=== PATIENT | female | born 1935 | race Caucasian/White ===

== ENCOUNTER 2017-07-11 23:15 | Inpatient (IN) | payer MEDICARE ==
[2017-07-11] MEDS ORDERED: methylPREDNISolone SOD SUCCI 125 MG/2 ML VIAL IV STA (23:36)
--- NOTE | 2017-07-11 23:38 | ED ---
General Adult HPI - General Chief complaint: Shortness of Breath Stated complaint: TICO Time Seen by Provider: 07/11/17 23:15 Source: patient, family, RN notes reviewed Mode of arrival: EMS Limitations: no limitations - History of Present Illness Initial comments: This is an 82-year-old female presents emergency department with past medical history significant for congestive heart failure and COPD. Patient comes in today because she's had difficulty breathing since this afternoon and is getting progressively worse. Patient states she was recently admitted about a month ago for congestive heart failure. Patient denies any fever chills or cough per patient denies any chest pain or palpitations. Patient states the breathing treatments on the way and plus the BiPAP has helped her with her breathing. Patient states she normally has a little bit of edema to her legs but it is a little worse as of yesterday. Patient denies any abdominal pain patient denies nausea vomiting diarrhea. Patient denies any lightheadedness or dizziness. Patient denies any headache patient denies numbness or weakness - Related Data Home Medications Medication Instructions Recorded Confirmed Ascorbic Acid [Vitamin C] 250 mg PO DAILY 06/01/17 06/01/17 Budesonide/Formoterol Fumarate 2 puff INHALATION RT-BID 06/01/17 06/01/17 [Symbicort 80-4.5 Mcg Inhaler] Cholecalciferol (Vitamin D3) 2,000 unit PO DAILY 06/01/17 06/01/17 [Vitamin D3] Docusate [Colace] 200 mg PO DAILY 06/01/17 06/01/17 Fexofenadine HCl [Altoya Allergy] 60 mg PO DAILY 06/01/17 06/01/17 Ipratropium [place] 0.06%Nasal 2 spray EA NOSTRIL BID 06/01/17 06/01/17 [Atrovent Nasal 0.06%] Ipratropium-Albuterol Nebulize 3 ml INHALATION RT-QID 06/01/17 06/01/17 [Duoneb 0.5 mg-3 mg/3 ml Soln] Levothyroxine Sodium [Synthroid] 100 mcg PO DAILY 06/01/17 06/01/17 Montelukast [Singulair] 10 mg PO HS 06/01/17 06/01/17 Roflumilast [Daliresp] 500 mcg PO DAILY 06/01/17 06/01/17 Theophylline Anhydrous [Theochron] 300 mg PO DAILY 06/01/17 06/01/17 predniSONE 20 mg PO DAILY 06/01/17 06/01/17 Previous Rx's Medication Instructions Recorded Aspirin 81 mg PO DAILY chew 06/06/17 Levofloxacin [Levaquin] 500 mg PO Q48H tab 06/06/17 Metoprolol Succinate (ER) [Toprol 25 mg PO DAILY tab.er.24h 06/06/17 XL] clonazePAM [KlonoPIN] 0.5 mg PO BID tab 06/06/17 guaiFENesin [Mucinex] 1,200 mg PO Q12HR tablet.er 06/06/17 Allergies Allergy/AdvReac Type Severity Reaction Status Date / Time No Known Allergies Allergy Verified 07/11/17 23:21 Review of Systems ROS Statement: Those systems with pertinent positive or pertinent negative responses have been documented in the HPI. ROS Other: All systems not noted in ROS Statement are negative. Past Medical History Past Medical History: COPD, Hyperlipidemia, Osteoarthritis (OA), Thyroid Disorder Additional Past Medical History / Comment(s): allergies, sinus, 02 -3 liters n/ c atc, fatty tumors.constipations, gout, past cataracts and gluacoma, and has a " touch of mac degeneration" History of Any Multi-Drug Resistant Organisms: None Reported Past Surgical History: Section Additional Past Surgical History / Comment(s): egd w/ bx pt stated was neg, colonoscopy, cataract removed has lens implants, eye sx for glaucoma. fatty tumor removed.'had flu shot this season but not sure of date" Past Anesthesia/Blood Transfusion Reactions: No Reported Reaction Past Psychological History: No Psychological Hx Reported Smoking Status: Former smoker - Past Family History Father Family Medical History: Myocardial Infarction ([place]) Additional Family Medical History / Comment(s): alcoholic/smoked Mother Family Medical History: Coronary Artery Disease (CAD), Myocardial Infarction ([place] ) Additional Family Medical History / Comment(s): cabg Daughter(s) Family Medical History: Cancer Additional Family Medical History / Comment(s): ovarian cancer Brother(s) Additional Family Medical History / Comment(s): one brother has heart problems and cancer, and another had seizure. Sister(s) Family Medical History: Cancer Additional Family Medical History / Comment(s): brain cancer General Exam - General Exam Comments Initial Comments: GENERAL: Patient is well-developed and well-nourished. Patient is nontoxic and well- hydrated and is in moderate distress. Patient is on BiPAP. ENT: Neck is soft and supple. No significant lymphadenopathy is noted. Oropharynx is clear. Moist mucous membranes. Neck has full range of motion without eliciting any pain. EYES: The sclera were anicteric and conjunctiva were pink and moist. Extraocular movements were intact and pupils were equal round and reactive to light. Eyelids were unremarkable. PULMONARY: Patient has extra wheezing and diminished breath sounds bilaterally CARDIOVASCULAR: There is a regular rate and rhythm without any murmurs gallops or rubs. ABDOMEN: Soft and nontender with normal bowel sounds. SKIN: Skin is clear with no lesions or rashes and otherwise unremarkable. NEUROLOGIC: Patient is alert and oriented x3. Cranial nerves II through XII are grossly intact. Motor and sensory are also intact. Normal speech, volume and content. Symmetrical smile. MUSCULOSKELETAL: Normal extremities with adequate strength and full range of motion. 1+ edema. No calf tenderness. LYMPHATICS: No significant lymphadenopathy is noted PSYCHIATRIC: Normal psychiatric evaluation. Normal interpersonal interactions appears functionally intact in deals appropriately with others. No signs of depression. No signs of anxiety. Limitations: no limitations Course Vital Signs 07/11/17 07/12/17 07/12/17 23:17 00:45 01:20 Temperature 98.5 F Pulse Rate 133 H 112 H 118 H Respiratory 24 24 24 Rate Blood Pressure 190/90 192/91 153/65 O2 Sat by Pulse 98 95 96 Oximetry Medical Decision Making - Medical Decision Making EKG shows sinus tachycardia at 126 bpm MN interval is 134 QRS is 74 Q-T intervals 294 QTC is 425. Patient's EKG is of poor quality but there is no obvious ST segment elevation or depression. Daughter refuses to let us give the patient Lasix because she is it dried out too much. Patient refused to tolerate the BiPAP any longer so he had to put her on a Ventimask. Dr. Ambrose wanted the patient to get 20 Lasix every 12. Family was in agreement with this. I continued Lasix on the floor. I continue breathing treatments and steroids on the floor as well as - Lab Data Result diagrams: 07/11/17 23:46 07/11/17 23:46 Lab Results 07/11/17 07/11/17 07/11/17 Range/Units 23:46 23:46 23:46 WBC 7.2 (3.8-10.6) k/uL RBC 3.23 L (3.80-5.40) m/uL Hgb 10.1 L (11.4-16.0) gm/dL Hct 33.9 L (34.0-46.0) % MCV 104.8 H (80.0-100.0) fL MCH 31.3 (25.0-35.0) pg MCHC 29.9 L (31.0-37.0) g/dL RDW 16.4 H (11.5-15.5) % Plt Count 243 (150-450) k/uL Neutrophils % 77 % Lymphocytes % 17 % Monocytes % 5 % Eosinophils % 0 % Basophils % 0 % Neutrophils # 5.5 (1.3-7.7) k/uL Lymphocytes # 1.2 (1.0-4.8) k/uL Monocytes # 0.4 (0-1.0) k/uL Eosinophils # 0.0 (0-0.7) k/uL Basophils # 0.0 (0-0.2) k/uL Hypochromasia Marked Poikilocytosis Slight Anisocytosis Slight Macrocytosis Moderate PT (9.0-12.0) sec INR (<1.2) APTT (22.0-30.0) sec Sodium 151 H (137-145) mmol/L Potassium 4.1 (3.5-5.1) mmol/L Chloride 104 (98-107) mmol/L Carbon Dioxide 38 H (22-30) mmol/L Anion Gap 9 mmol/L BUN 36 H (7-17) mg/dL Creatinine 1.80 H (0.52-1.04) mg/dL Est GFR (MDRD) Af Amer 33 (>60 ml/min/1.73 sqM) Est GFR (MDRD) Non-Af 27 (>60 ml/min/1.73 sqM) Glucose 69 L (74-99) mg/dL Calcium 9.8 (8.4-10.2) mg/dL Magnesium 2.0 (1.6-2.3) mg/dL Total Bilirubin 0.5 (0.2-1.3) mg/dL AST 26 (14-36) U/L ALT 29 (9-52) U/L Alkaline Phosphatase 56 (38-126) U/L Total Creatine Kinase <20 L (30-135) U/L CK-MB (CK-2) 1.0 (0.0-2.4) ng/mL CK-MB (CK-2) Rel Index Troponin I 0.039 H* (0.000-0.034) ng/mL NT-Pro-B Natriuret Pep pg/mL Total Protein 5.8 L (6.3-8.2) g/dL Albumin 3.5 (3.5-5.0) g/dL 07/11/17 07/11/17 Range/Units 23:46 23:46 WBC (3.8-10.6) k/uL RBC (3.80-5.40) m/uL Hgb (11.4-16.0) gm/dL Hct (34.0-46.0) % MCV (80.0-100.0) fL MCH (25.0-35.0) pg MCHC (31.0-37.0) g/dL RDW (11.5-15.5) % Plt Count (150-450) k/uL Neutrophils % % Lymphocytes % % Monocytes % % Eosinophils % % Basophils % % Neutrophils # (1.3-7.7) k/uL Lymphocytes # (1.0-4.8) k/uL Monocytes # (0-1.0) k/uL Eosinophils # (0-0.7) k/uL Basophils # (0-0.2) k/uL Hypochromasia Poikilocytosis Anisocytosis Macrocytosis PT 9.7 (9.0-12.0) sec INR 1.0 (<1.2) APTT 21.9 L (22.0-30.0) sec Sodium (137-145) mmol/L Potassium (3.5-5.1) mmol/L Chloride (98-107) mmol/L Carbon Dioxide (22-30) mmol/L Anion Gap mmol/L BUN (7-17) mg/dL Creatinine (0.52-1.04) mg/dL Est GFR (MDRD) Af Amer (>60 ml/min/1.73 sqM) Est GFR (MDRD) Non-Af (>60 ml/min/1.73 sqM) Glucose (74-99) mg/dL Calcium (8.4-10.2) mg/dL Magnesium (1.6-2.3) mg/dL Total Bilirubin (0.2-1.3) mg/dL AST (14-36) U/L ALT (9-52) U/L Alkaline Phosphatase (38-126) U/L Total Creatine Kinase (30-135) U/L CK-MB (CK-2) (0.0-2.4) ng/mL CK-MB (CK-2) Rel Index Troponin I (0.000-0.034) ng/mL NT-Pro-B Natriuret Pep 1640 pg/mL Total Protein (6.3-8.2) g/dL Albumin (3.5-5.0) g/dL Critical Care Time Critical Care Time: Yes Total Critical Care Time: 35 Disposition Clinical Impression: Acute pulmonary edema, Acute exacerbation of chronic obstructive airways disease, Renal insufficiency Disposition: ADMITTED IP TO THIS HOSP Referrals: Elva Ren MD [Primary Care Provider] - 1-2 days Time of Disposition: 01:29
[2017-07-12] MEDS ORDERED: hydrALAZINE HCL 20 MG/ML 1 ML VIAL IVP STA (00:14)
--- NOTE | 2017-07-12 00:17 | XR ---
EXAMINATION TYPE: XR chest 2V DATE OF EXAM: 07/12/2017 COMPARISON: 06/03/2017 HISTORY: Difficulty breathing TECHNIQUE: Frontal and lateral views of the chest are obtained. FINDINGS: Heart appears enlarged. There is some flattening of the diaphragm. There is patchy bilater al pulmonary infiltrates. Pulmonary vascularity is difficult to evaluate because of the lung disease. There is slight blunting of right costophrenic angle. IMPRESSION: New bilateral pulmonary infiltrates compared to last exam. This is more likely congestiv e heart failure superimposed on emphysema. Small right pleural effusion. There is some consolidation in the right middle lobe consistent with acute pneumonia.
[2017-07-12 00:18] LABS: Anisocytosis Slight; Basophils % (A) 0 %; Eosinophils % (A) 0 %; HCT 33.9 % (34.0-46.0); HGB 10.1 gm/dL (11.4-16.0); Hypochromasia Marked; Lymphocytes # (A) 1.2 k/uL (1.0-4.8); Lymphocytes % (A) 17 %; MCH 31.3 pg (25.0-35.0); MCHC 29.9 g/dL (31.0-37.0); MCV 104.8 fL (80.0-100.0); Macrocytosis Moderate; Mean Platelet Volume 7.5; Monocytes # (A) 0.4 k/uL (0-1.0); Monocytes % (A) 5 %; Neutrophils # (A) 5.5 k/uL (1.3-7.7); Neutrophils % (A) 77 %; Platelet Count 243 k/uL (150-450); Poikilocytosis Slight; RBC 3.23 m/uL (3.80-5.40); RDW 16.4 % (11.5-15.5); WBC 7.2 k/uL (3.8-10.6)
[2017-07-12 00:26] LABS: Albumin 3.5 g/dL (3.5-5.0); Calcium 9.8 mg/dL (8.4-10.2); Potassium 4.1 mmol/L (3.5-5.1); Total Bilirubin 0.5 mg/dL (0.2-1.3); Total Protein 5.8 g/dL (6.3-8.2)
[2017-07-12 00:28] LABS: Prothrombin Time 9.7 sec (9.0-12.0)
[2017-07-12 00:34] LABS: Partial Thromboplastin Time 21.9 sec (22.0-30.0)
[2017-07-12 00:37] LABS: Creatine Kinase <20 U/L (30-135)
[2017-07-12] MEDS ORDERED: ONDANSETRON 4 MG/2 ML VIAL IVP STA (00:41)
[2017-07-12 00:54] LABS: Troponin I 0.039 ng/mL (0.000-0.034)
[2017-07-12] MEDS ORDERED: MORPHINE SULFATE 2 MG/ML SYRINGE IVP STA (01:12)
[2017-07-12] MEDS ORDERED: FUROSEMIDE 10 MG/ML 2 ML VIAL IV ONE ×2 (01:18→01:47)
[2017-07-12] MEDS ORDERED: NITROGLYCERIN OINT 1 INCH/GM PACKET TOPICAL STA (01:18)
[2017-07-12 02:20] LABS: Glucose,Whole Blood 89 mg/dL (75-99)
[2017-07-12 05:33] LABS: Anisocytosis Slight; HGB 9.7 gm/dL (11.4-16.0); Hypochromasia Marked; MCH 32.4 pg (25.0-35.0); MCHC 29.3 g/dL (31.0-37.0); Macrocytosis Marked; Mean Platelet Volume 7.6; Platelet Count 181 k/uL (150-450); Poikilocytosis Slight; RBC 2.98 m/uL (3.80-5.40); RDW 16.6 % (11.5-15.5); WBC 5.7 k/uL (3.8-10.6)
[2017-07-12 05:38] LABS: MCV 110.4 fL (80.0-100.0)
[2017-07-12 05:39] LABS: Calcium 9.5 mg/dL (8.4-10.2); Potassium 5.1 mmol/L (3.5-5.1)
[2017-07-12] MEDS: methylPREDNISolone SOD SUCCI 125 MG/2 ML VIAL IV SCH ×4 (06:45→23:27)
[2017-07-12] MEDS ORDERED: FUROSEMIDE 10 MG/ML 2 ML VIAL IV SCH (08:00)
[2017-07-12] MEDS: IPRATROPIUM-ALBUTEROL 3 ML NEB INHALATION PRN ×2 (08:02→11:42)
[2017-07-12] MEDS ORDERED: NITROGLYCERIN OINT 1 INCH/GM PACKET TOPICAL SCH (09:00)
--- NOTE | 2017-07-12 10:58 | P.CNPUL ---
History of Present Illness Consult date: 07/12/17 Reason for consult: dyspnea, COPD, hypoxemia, pleural effusion, abnormal CXR/CT Chief complaint: Shortness of breath, CHF, mental status changes. History of present illness: Consult dated 07/12/2017 This is an 82-year-old female who presented to the emergency department with complaints of shortness of breath. She has a history of congestive heart failure and quite severe COPD. In addition, she had progressive shortness of breath. It been getting worse for a couple days prior to admission. She was recently admitted to the hospital for an episode of congestive heart failure. The patient also has mental status changes. When I went to the room to see her , she could barely recognized me. I been seeing her for many years. I asked the nurse to get a stat arterial blood gas and also to do a computed tomography scan of the brain. The patient's chest x-ray is consistent consistent with fluid overload. The patient's receiving O2 at 5 L by nasal cannula no IV fluids. She's been on and off of BiPAP at 12 and 6 and 50%. Her most recent admission was in May of last year. She has a history of COPD hyperlipidemia osteoarthritis hypothyroidism congestive heart failure and glaucoma gout lipoma and macular degeneration. Her medications included ascorbic acid Symbicort vitamin D3 Colace Latoya updrafts with DuoNeb Atrovent nasal spray Synthroid Singulair bowel arrest theophylline and prednisone daily. ALLERGIES are denied. Review of Systems ROS unobtainable: due to mental status Past Medical History Past Medical History: Heart Failure, COPD, Hyperlipidemia, Osteoarthritis (OA), Sleep Apnea/CPAP/BIPAP, Thyroid Disorder Additional Past Medical History / Comment(s): allergies, sinus, 02 -3 liters n/ c atc, fatty tumors.constipations, gout, past cataracts and gluacoma, and has a " touch of mac degeneration" History of Any Multi-Drug Resistant Organisms: None Reported Past Surgical History: Section Additional Past Surgical History / Comment(s): egd w/ bx pt stated was neg, colonoscopy, cataract removed has lens implants, eye sx for glaucoma. fatty tumor removed.'had flu shot this season but not sure of date" Past Anesthesia/Blood Transfusion Reactions: No Reported Reaction Past Psychological History: No Psychological Hx Reported Smoking Status: Former smoker Past Alcohol Use History: None Reported Additional Past Alcohol Use History / Comment(s): started smoking(1968) and quit 2008-smoked off and on Past Drug Use History: None Reported - Past Family History Father Family Medical History: Myocardial Infarction ([place]) Additional Family Medical History / Comment(s): alcoholic/smoked Mother Family Medical History: Coronary Artery Disease (CAD), Myocardial Infarction ([place] ) Additional Family Medical History / Comment(s): cabg Daughter(s) Family Medical History: Cancer Additional Family Medical History / Comment(s): ovarian cancer Brother(s) Additional Family Medical History / Comment(s): one brother has heart problems and cancer, and another had seizure. Sister(s) Family Medical History: Cancer Additional Family Medical History / Comment(s): brain cancer Medications and Allergies Home Medications Medication Instructions Recorded Confirmed Type Ascorbic Acid [Vitamin C] 250 mg PO DAILY 06/01/17 07/12/17 History Budesonide/Formoterol Fumarate 2 puff INHALATION RT-BID 06/01/17 07/12/17 History [Symbicort 80-4.5 Mcg Inhaler] Cholecalciferol (Vitamin D3) 2,000 unit PO DAILY 06/01/17 07/12/17 History [Vitamin D3] Docusate [Colace] 200 mg PO DAILY 06/01/17 07/12/17 History Fexofenadine HCl [Latoya Allergy] 60 mg PO DAILY 06/01/17 07/12/17 History Ipratropium [place] 0.06%Nasal 2 spray EA NOSTRIL BID 06/01/17 07/12/17 History [Atrovent Nasal 0.06%] Ipratropium-Albuterol Nebulize 3 ml INHALATION RT-QID 06/01/17 07/12/17 History [Duoneb 0.5 mg-3 mg/3 ml Soln] Levothyroxine Sodium [Synthroid] 100 mcg PO DAILY 06/01/17 07/12/17 History Montelukast [Singulair] 10 mg PO HS 06/01/17 07/12/17 History Roflumilast [Daliresp] 500 mcg PO DAILY 06/01/17 07/12/17 History Theophylline Anhydrous [Theochron] 300 mg PO DAILY 06/01/17 07/12/17 History predniSONE 20 mg PO DAILY 06/01/17 07/12/17 History Aspirin 81 mg PO DAILY chew 06/06/17 07/12/17 Rx Metoprolol Succinate (ER) [Toprol 25 mg PO DAILY tab.er.24h 06/06/17 07/12/17 Rx XL] clonazePAM [KlonoPIN] 0.5 mg PO BID tab 06/06/17 07/12/17 Rx guaiFENesin [Mucinex] 1,200 mg PO Q12HR tablet.er 06/06/17 07/12/17 Rx Furosemide [Lasix] 40 mg PO DAILY 07/12/17 07/12/17 History Levofloxacin [Levaquin] 500 mg PO DAILY 07/12/17 07/12/17 History Olopatadine HCl [[place]] 1 drop BOTH EYES DIRECTED 07/12/17 07/12/17 History Polymyxin B-Trimethoprim Ophth 1 drops BOTH EYES DIRECTED 07/12/17 07/12/17 History [Polytrim Opthalmic] Allergies Allergy/AdvReac Type Severity Reaction Status Date / Time No Known Allergies Allergy Verified 07/12/17 08:54 Physical Exam Osteopathic Statement: *. No significant issues noted on an osteopathic structural exam other than those noted in the History and Physical/Consult. Vitals: Vital Signs Temp Pulse Resp BP Pulse Ox 07/12/17 10:00 95 18 90/43 91 L 07/12/17 09:00 101 H 21 91/53 90 L 07/12/17 08:12 98 07/12/17 08:03 94 96 07/12/17 08:00 97.5 F L 95 18 91/46 98 07/12/17 07:00 103 H 20 87/46 99 07/12/17 04:00 98.2 F 107 H 25 H 82/69 96 07/12/17 03:13 97 07/12/17 03:00 109 H 18 81/41 88 L 07/12/17 02:19 98.6 F 113 H 41 H 91/47 07/12/17 02:04 112 H 20 138/64 93 L 07/12/17 01:20 118 H 24 153/65 96 07/12/17 00:45 112 H 24 192/91 95 07/11/17 23:17 98.5 F 133 H 24 190/90 98 Intake and Output 07/11/17 07/12/17 07/12/17 22:59 06:59 14:59 Intake Total 120 Balance 120 Intake: Oral 120 Other: # Voids 0 Weight 59.7 kg No acute distress. The patient is very confused. She does arouse. HEENT examination is grossly unremarkable. Mucous membranes are moist. No oral lesions. Bilateral sclerae are injected. Right side greater than left side. Neck supple. Full range of motion. No adenopathy thyromegaly or neck vein distention. Cardiovascular examination reveals regular rhythm rate. S1-S2 normal. No S3 or S4. No discernible murmur noted. Lungs reveal diminished breath sounds. Some crackles at the bases. There is diffuse rhonchi. Breath sounds are severely diminished. Abdomen soft bowel sounds are heard. No masses or tenderness. Extremities reveal diffuse bilateral edema. There is pitting. Skin is without rash or lesion. Neurologic examination is difficult to perform because of her mental status.. Results - Laboratory Findings CBC and BMP: 07/12/17 04:40 07/12/17 04:40 PT/INR, D-dimer PT 9.7 sec (9.0-12.0) 07/11/17 23:46 INR 1.0 (<1.2) 07/11/17 23:46 Abnormal lab findings: Abnormal Labs 07/11/17 07/11/17 07/11/17 23:46 23:46 23:46 RBC 3.23 L Hgb 10.1 L Hct 33.9 L MCV 104.8 H MCHC 29.9 L RDW 16.4 H APTT Sodium 151 H Carbon Dioxide 38 H BUN 36 H Creatinine 1.80 H Glucose 69 L Total Creatine Kinase <20 L Troponin I 0.039 H* Total Protein 5.8 L 07/11/17 07/12/17 07/12/17 23:46 04:40 04:40 RBC 2.98 L Hgb 9.7 L Hct 33.0 L MCV 110.4 H D MCHC 29.3 L RDW 16.6 H APTT 21.9 L Sodium Carbon Dioxide BUN Creatinine Glucose Total Creatine Kinase Troponin I 0.058 H* Total Protein 07/12/17 04:40 RBC Hgb Hct MCV MCHC RDW APTT Sodium 148 H Carbon Dioxide 31 H BUN 43 H Creatinine 1.90 H Glucose Total Creatine Kinase Troponin I Total Protein - Diagnostic Findings Chest x-ray: image reviewed (The labs x-rays a medications are all reviewed. 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 Plan: Plan dated 07/12/2017 The patient will be sent down for a CAT scan of the brain without contrast. In addition, we'll give start arterial blood gas. Her medications labs and x-rays all reviewed. Her overall prognosis is poor. She may require intubation before the day is up. Additional recommendations and suggestions are forthcoming. All medications were reviewed and adjusted accordingly. Time with Patient: Greater than 30
[2017-07-12 11:08] LABS: ABG PH 7.09 (7.35-7.45)
[2017-07-12 11:09] LABS: ABG Base Excess 3.7 mmol/L; ABG HCO3 33 mmol/L (21-25); ABG PCO2 114 mmHg (35-45); ABG PO2 172 mmHg (83-108); ABG TCO2 37 mmol/L (19-24)
[2017-07-12 11:42] LABS: Amorphous Sediment,Urine Rare /hpf; Appearance,Urine Clear (Clear); Bilirubin,Urine Negative (Negative); Blood,Urine Negative (Negative); Color,Urine Yellow; Glucose,Urine (UA) Negative (Negative); Ketones,Urine Negative (Negative); Leukocyte Esterase,Urine Negative (Negative); Nitrite,Urine Negative (Negative); Protein,Urine 1+ (Negative); Specific Gravity,Urine 1.007 (1.001-1.035); Squamous Epithelial Cell,Urine <1 /hpf (0-4); Urobilinogen,Urine <2.0 mg/dL (<2.0); WBC,Urine <1 /hpf (0-5)
[2017-07-12] MEDS ORDERED: METOPROLOL SUCCINATE (ER) 25 MG TAB.ER.24H PO SCH (11:45)
--- NOTE | 2017-07-12 11:50 | P.CRDCN ---
History of Present Illness Consult date: 07/12/17 History of present illness: Mrs. May is an 82-year-old female past medical history significant for COPD, diastolic heart failure and former tobacco use. She sees Dr. Lofton in the office, last visit was 11/2015. We have been asked to see her in consultation for shortness of breath. She is seen today in the ICU on bipap. She is alert but not really talking, history taken from chart, nurse and daughter at the bedside. Per the daughter she was severely dypneic with altered mental status. She was receiving oxygen via nasal cannula initially and continued to become increasingly dyspneic and altered so bipap was applied. ABG obtained reveals CO2 noted to be 114 with pH 7.09. She denies chest pain or palpitations. Blood pressure on admission 190/90 she received hydralazine 10 mg IV push. EKG on arrival reveals sinus tachycardia with poor quality secondary to tachypnea. Chest xray bilateral pulmonary infiltrates likely congestive heart failure superimposed on emphysema with small right pleural effusion. Small consolidation in the right middle lobe consistent with pneumonia. Lavatory data reviewed, hemoglobin 9.7, pH 7.09, pCO2 114, pO2 172, bicarb 33, potassium 5.1, BUN 43, creatinine 1.9 with a GFR of 25, troponins on admission 0.039 repeat 0.058, proBNP 1640. Current cardiac medications include Toprol 25 mg daily, Lasix 40 mg daily and aspirin 81 mg daily. Most recent echocardiogram performed 05/2017 reveals preserved left ventricular systolic function with ejection fraction 55-60%, mild concentric left ventricular hypertrophy, mild aortic valve sclerosis, mild pulmonary hypertension, mild MR and mild TR. RVSP 35.26 mmHg. Review of systems At this time my exam: Difficult to obtain an accurate review of systems secondary to mental status. Although upon questioning she does deny symptoms of chest pain or palpitations. Physical exam Blood pressure 90/43 heart rate 99 afebrile GENERAL: This is a 82-year-old female in moderate respiratory distress at the time of my examination. Currently on BiPAP. HEENT: Head is atraumatic, normocephalic. Right eye with subconjunctival hemorrhage. Sclerae anicteric. Mucous membranes of the mouth are moist. Neck is supple. There is no jugular venous distention. No carotid bruit is heard. LUNGS: Severely diminished air entry.No chest wall tenderness is noted on palpation or with deep breathing. HEART: Regular rate and rhythm with systolic ejection murmur at the base, no rubs or gallops. S1 and S2 heard. Tachycardic. ABDOMEN: Soft, nontender. Bowel sounds are heard. No organomegaly noted. EXTREMITIES: No evidence of peripheral edema and no calf tenderness noted. VASCULAR: Radial and dorsalis pedis pulses palpated, no evidence of clubbing. NEUROLOGIC: Patient is awake and alert. ASSESSMENT 1. Very mild exacerbation diastolic heart failure, proBNP 1640 2. Acute exacerbation of COPD currently on BiPAP with CO2 retention 3. Mildly elevated troponin with no evidence of an acute coronary event 4. Dyslipidemia PLAN Continue with lasix IV 20 mg BID. Strict intake and output monitoring. Repeat EKG in the morning. Check BMP and follow renal function while undergoing diuresis. Continue aspirin and beta hayley therapy. TACO inhibitor was discontinued last admission secondary to acute kidney injury. Avoid episodes of hypotension, no IV anti-hypertensives should be used. Discontinue nitropaste. Continue with pulmonary consultation for acute exacerbation of COPD and CO2 retention. Further recommendations will be based upon clinical course. Thank you kindly for this consultation. Nurse Practitioner note has been reviewed, I agree with a documented findings and plan of care. Patient was seen and examined. Past Medical History Past Medical History: Heart Failure, COPD, Hyperlipidemia, Osteoarthritis (OA), Sleep Apnea/CPAP/BIPAP, Thyroid Disorder Additional Past Medical History / Comment(s): allergies, sinus, 02 -3 liters n/ c atc, fatty tumors.constipations, gout, past cataracts and gluacoma, and has a " touch of mac degeneration" History of Any Multi-Drug Resistant Organisms: None Reported Past Surgical History: Section Additional Past Surgical History / Comment(s): egd w/ bx pt stated was neg, colonoscopy, cataract removed has lens implants, eye sx for glaucoma. fatty tumor removed.'had flu shot this season but not sure of date" Past Anesthesia/Blood Transfusion Reactions: No Reported Reaction Past Psychological History: No Psychological Hx Reported Smoking Status: Former smoker Past Alcohol Use History: None Reported Additional Past Alcohol Use History / Comment(s): started smoking(1968) and quit 2008-smoked off and on Past Drug Use History: None Reported - Past Family History Father Family Medical History: Myocardial Infarction ([place]) Additional Family Medical History / Comment(s): alcoholic/smoked Mother Family Medical History: Coronary Artery Disease (CAD), Myocardial Infarction ([place] ) Additional Family Medical History / Comment(s): cabg Daughter(s) Family Medical History: Cancer Additional Family Medical History / Comment(s): ovarian cancer Brother(s) Additional Family Medical History / Comment(s): one brother has heart problems and cancer, and another had seizure. Sister(s) Family Medical History: Cancer Additional Family Medical History / Comment(s): brain cancer Medications and Allergies Home Medications Medication Instructions Recorded Confirmed Type Ascorbic Acid [Vitamin C] 250 mg PO DAILY 06/01/17 07/12/17 History Budesonide/Formoterol Fumarate 2 puff INHALATION RT-BID 06/01/17 07/12/17 History [Symbicort 80-4.5 Mcg Inhaler] Cholecalciferol (Vitamin D3) 2,000 unit PO DAILY 06/01/17 07/12/17 History [Vitamin D3] Docusate [Colace] 200 mg PO DAILY 06/01/17 07/12/17 History Fexofenadine HCl [Latoya Allergy] 60 mg PO DAILY 06/01/17 07/12/17 History Ipratropium [place] 0.06%Nasal 2 spray EA NOSTRIL BID 06/01/17 07/12/17 History [Atrovent Nasal 0.06%] Ipratropium-Albuterol Nebulize 3 ml INHALATION RT-QID 06/01/17 07/12/17 History [Duoneb 0.5 mg-3 mg/3 ml Soln] Levothyroxine Sodium [Synthroid] 100 mcg PO DAILY 06/01/17 07/12/17 History Montelukast [Singulair] 10 mg PO HS 06/01/17 07/12/17 History Roflumilast [Daliresp] 500 mcg PO DAILY 06/01/17 07/12/17 History Theophylline Anhydrous [Theochron] 300 mg PO DAILY 06/01/17 07/12/17 History predniSONE 20 mg PO DAILY 06/01/17 07/12/17 History Aspirin 81 mg PO DAILY chew 06/06/17 07/12/17 Rx Metoprolol Succinate (ER) [Toprol 25 mg PO DAILY tab.er.24h 06/06/17 07/12/17 Rx XL] clonazePAM [KlonoPIN] 0.5 mg PO BID tab 06/06/17 07/12/17 Rx guaiFENesin [Mucinex] 1,200 mg PO Q12HR tablet.er 06/06/17 07/12/17 Rx Furosemide [Lasix] 40 mg PO DAILY 07/12/17 07/12/17 History Levofloxacin [Levaquin] 500 mg PO DAILY 07/12/17 07/12/17 History Olopatadine HCl [Pataday] 1 drop BOTH EYES DIRECTED 07/12/17 07/12/17 History Polymyxin B-Trimethoprim Ophth 1 drops BOTH EYES DIRECTED 07/12/17 07/12/17 History [Polytrim Opthalmic] Allergies Allergy/AdvReac Type Severity Reaction Status Date / Time No Known Allergies Allergy Verified 07/12/17 08:54 Physical Exam Vitals: Vital Signs Temp Pulse Resp BP Pulse Ox 07/12/17 11:00 99 21 90/43 94 L 07/12/17 10:00 95 18 90/43 91 L 07/12/17 09:00 101 H 21 91/53 90 L 07/12/17 08:12 98 07/12/17 08:03 94 96 07/12/17 08:00 97.5 F L 95 18 91/46 98 07/12/17 07:00 103 H 20 87/46 99 07/12/17 04:00 98.2 F 107 H 25 H 82/69 96 07/12/17 03:13 97 07/12/17 03:00 109 H 18 81/41 88 L 07/12/17 02:19 98.6 F 113 H 41 H 91/47 07/12/17 02:04 112 H 20 138/64 93 L 07/12/17 01:20 118 H 24 153/65 96 07/12/17 00:45 112 H 24 192/91 95 07/11/17 23:17 98.5 F 133 H 24 190/90 98 Intake and Output 07/11/17 07/12/17 07/12/17 22:59 06:59 14:59 Intake Total 120 Balance 120 Intake: Oral 120 Other: # Voids 0 Weight 59.7 kg Results 07/12/17 04:40 07/12/17 04:40 Cardiac Enzymes 07/11/17 07/11/17 07/12/17 Range/Units 23:46 23:46 04:40 AST 26 (14-36) U/L CK-MB (CK-2) 1.0 (0.0-2.4) ng/mL Troponin I 0.039 H* 0.058 H* (0.000-0.034) ng/mL Coagulation 07/11/17 Range/Units 23:46 PT 9.7 (9.0-12.0) sec APTT 21.9 L (22.0-30.0) sec CBC 07/11/17 07/12/17 Range/Units 23:46 04:40 WBC 7.2 5.7 (3.8-10.6) k/uL RBC 3.23 L 2.98 L (3.80-5.40) m/uL Hgb 10.1 L 9.7 L (11.4-16.0) gm/dL Hct 33.9 L 33.0 L (34.0-46.0) % Plt Count 243 181 (150-450) k/uL Comprehensive Metabolic Panel 07/11/17 07/12/17 Range/Units 23:46 04:40 Sodium 151 H 148 H (137-145) mmol/L Potassium 4.1 5.1 (3.5-5.1) mmol/L Chloride 104 107 (98-107) mmol/L Carbon Dioxide 38 H 31 H (22-30) mmol/L BUN 36 H 43 H (7-17) mg/dL Creatinine 1.80 H 1.90 H (0.52-1.04) mg/dL Glucose 69 L 92 (74-99) mg/dL Calcium 9.8 9.5 (8.4-10.2) mg/dL AST 26 (14-36) U/L ALT 29 (9-52) U/L Alkaline Phosphatase 56 (38-126) U/L Total Protein 5.8 L (6.3-8.2) g/dL Albumin 3.5 (3.5-5.0) g/dL Current Medications Generic Name Dose Route Start Last Admin Trade Name Freq PRN Reason Stop Dose Admin Albuterol/Ipratropium 3 ml 07/12/17 01:48 07/12/17 08:02 Duoneb 0.5 Mg-3 Mg/3 Ml Soln INHALATION 3 ml RT-QID PRN Administration Shortness Of Breath Or Wheezing Budesonide 1 mg 07/12/17 20:00 Pulmicort INHALATION RT-BID [facility] Formoterol Fumarate 20 mcg 07/12/17 20:00 Perforomist INHALATION RT-BID MILAN Furosemide 20 mg 07/12/17 13:45 07/12/17 02:06 Lasix IV 20 mg Q12H MILAN Administration Methylprednisolone Sodium Succinate 60 mg 07/12/17 06:00 07/12/17 08:17 Solu-Medrol IV 60 mg Q6HR MILAN Administration Nitroglycerin 1 inch 07/12/17 09:00 07/12/17 08:16 Nitro-Bid Oint TOPICAL Not Given QID [facility] Intake and Output 07/11/17 07/12/17 07/12/17 22:59 06:59 14:59 Intake Total 120 Balance 120 Intake: Oral 120 Other: # Voids 0 Weight 59.7 kg 07/12/17 04:40 07/12/17 04:40
[2017-07-12 13:02] LABS: ABG HCO3 31 mmol/L (21-25); ABG PCO2 84 mmHg (35-45); ABG PH 7.19 (7.35-7.45); ABG PO2 62 mmHg (83-108)
[2017-07-12 13:03] LABS: ABG Base Excess 3.7 mmol/L; ABG TCO2 34 mmol/L (19-24)
[2017-07-12] MEDS ORDERED: SODIUM CHLORIDE 0.9% 500 ML IV ONE (13:40)
[2017-07-12] MEDS ORDERED: FUROSEMIDE 10 MG/ML 4 ML VIAL IV SCH (13:45)
--- NOTE | 2017-07-12 13:53 | CONS ---
CONSULTATION REASON FOR CONSULT: Renal failure. HISTORY OF PRESENT ILLNESS: The patient is an 82-year-old female with a history of severe COPD. She was admitted to the hospital with increased shortness of breath. The patient does have underlying CKD with baseline creatinine about 1.5 mg/dL. She was recently hospitalized for about a week at [facility] and at [facility] for COPD exacerbation. Her blood pressure was initially high when she came in with systolic about 190. Currently patient is hypotensive and her blood pressure is about 87/46 mmHg. She is afebrile. Chest x-ray shows pleural effusions and pulmonary vascular congestion. The patient has not had much urine output. She received 20 mg of IV push Lasix in the ER. She has not voided much. Her serum creatinine was 1.8 mg/dL this admission and it is at 1.9 now. PAST MEDICAL HISTORY: COPD, hypertension, CKD, hypothyroidism. PAST SURGICAL HISTORY: Colonoscopy, cataract surgery, surgery for glaucoma, foot wound. SOCIAL HISTORY: Negative for smoking. Patient is a former smoker. No history of drug abuse or alcohol abuse. MEDICATIONS: Medications at home included vitamin D, vitamin C, Colace, Latoya, Synthroid, singular, prednisone, aspirin, Levaquin, Klonopin, Mucinex, Toprol. ALLERGIES: None. EXAMINATION: Patient is currently sitting up in bed. She is mildly short of breath, not in any acute distress. Awake. She is not talking much. Blood pressure is 90/43, heart rate 95 per minute. She is afebrile. Examination of the heart S1, S2. Examination of the lungs decreased breath sounds at the bases. Wheezing is heard. Bilateral basal crackles are heard. Abdomen is soft, nontender. Examination of the lower extremities shows chronic skin changes. Trace edema bilaterally. SURVEYOR INSTRUMENT ASSISTANT exam shows patient moving all 4 extremities. LAB: Show sodium 148, potassium 5.1, BUN 43, serum creatinine 1.9, hemoglobin 9.7 g/dL. Troponin was 0.058. UA is not available. Chest x-ray shows pulmonary vascular congestion. Changes of emphysema. ASSESSMENT: 1. Acute kidney injury, currently oliguric, most likely ischemic acute tubular necrosis versus cardiorenal. I will repeat another dose of Lasix but at a higher dose. Patient will also have a bladder scan. She has no nephrotoxic agents on board. We will continue to maintain her off of IV fluids and avoid hypotension. 2. Severe chronic obstructive pulmonary disease with exacerbation. Pulmonary will be consulted. 3. Hypothyroidism. 4. Chronic kidney disease, most likely secondary to nephrosclerosis. I do not have a urinalysis available and this will be obtained. 5. Hypernatremia secondary to free water deficit, slightly improved. 6. Anemia, rule out iron deficiency. PLAN: Repeat Lasix. Check urinalysis. Check iron studies. Repeat labs in a.m. Continue to avoid nephrotoxic agents. Thank you for this consultation. We will continue to follow the patient with you during her hospitalization. MMODL / IJN: [id number] /
[2017-07-12] MEDS: ENOXAPARIN 30 MG/0.3 ML SYRINGE SQ SCH (13:59)
[2017-07-12] MEDS: ASPIRIN 81 MG PO SCH (14:00)
--- NOTE | 2017-07-12 14:47 | P.HPIM ---
History of Present Illness H&P Date: 07/12/17 Chief Complaint: Worsening shortness of breath This is a 82-year-old female with very complex past medical history noted below significant for advanced COPD on home O2 who presented to the hospital with worsening shortness of breath and confusion. Patient was evaluated in the emergency room and was found to have evidence of fluid overload on chest x-ray. She was started on IV Lasix and was admitted to the hospital. She was noted to be more confused and a blood gas was obtained showing evidence of acute hypercapnic respiratory failure with pH of 7.09. Patient is currently in the intensive care unit. She was started on BiPAP. Her blood pressure on presentation was in the 190s systolic and patient received a dose of IV Lasix around 2 in the morning. Since this morning, her systolic blood pressure is been running in the low 80s. This was confirmed with manual blood pressure. There is no evidence of ongoing infection or sepsis. Patient was also noted to have edematous conjunctiva with injection which her daughter told me that is being going on for the past few days at home. They are thinking it secondary to the BiPAP machine use at home. Of note, patient daughter informed me that she was hospitalized at [facility] for approximately 12 days and was discharged couple of weeks ago. She was also hospitalized here in May. Review of Systems Unable to review other systems given BiPAP use and altered mental status Past Medical History Past Medical History: Heart Failure, COPD, Hyperlipidemia, Osteoarthritis (OA), Sleep Apnea/CPAP/BIPAP, Thyroid Disorder Additional Past Medical History / Comment(s): allergies, sinus, 02 -3 liters n/ c atc, fatty tumors.constipations, gout, past cataracts and gluacoma, and has a " touch of mac degeneration" History of Any Multi-Drug Resistant Organisms: None Reported Past Surgical History: Section Additional Past Surgical History / Comment(s): egd w/ bx pt stated was neg, colonoscopy, cataract removed has lens implants, eye sx for glaucoma. fatty tumor removed.'had flu shot this season but not sure of date" Past Anesthesia/Blood Transfusion Reactions: No Reported Reaction Past Psychological History: No Psychological Hx Reported Smoking Status: Former smoker Past Alcohol Use History: None Reported Additional Past Alcohol Use History / Comment(s): started smoking(1968) and quit 2008-smoked off and on Past Drug Use History: None Reported - Past Family History Father Family Medical History: Myocardial Infarction ([place]) Additional Family Medical History / Comment(s): alcoholic/smoked Mother Family Medical History: Coronary Artery Disease (CAD), Myocardial Infarction ([place] ) Additional Family Medical History / Comment(s): cabg Daughter(s) Family Medical History: Cancer Additional Family Medical History / Comment(s): ovarian cancer Brother(s) Additional Family Medical History / Comment(s): one brother has heart problems and cancer, and another had seizure. Sister(s) Family Medical History: Cancer Additional Family Medical History / Comment(s): brain cancer Medications and Allergies Home Medications Medication Instructions Recorded Confirmed Type Ascorbic Acid [Vitamin C] 250 mg PO DAILY 06/01/17 07/12/17 History Budesonide/Formoterol Fumarate 2 puff INHALATION RT-BID 06/01/17 07/12/17 History [Symbicort 80-4.5 Mcg Inhaler] Cholecalciferol (Vitamin D3) 2,000 unit PO DAILY 06/01/17 07/12/17 History [Vitamin D3] Docusate [Colace] 200 mg PO DAILY 06/01/17 07/12/17 History Fexofenadine HCl [Latoya Allergy] 60 mg PO DAILY 06/01/17 07/12/17 History Ipratropium [place] 0.06%Nasal 2 spray EA NOSTRIL BID 06/01/17 07/12/17 History [Atrovent Nasal 0.06%] Ipratropium-Albuterol Nebulize 3 ml INHALATION RT-QID 06/01/17 07/12/17 History [Duoneb 0.5 mg-3 mg/3 ml Soln] Levothyroxine Sodium [Synthroid] 100 mcg PO DAILY 06/01/17 07/12/17 History Montelukast [Singulair] 10 mg PO HS 06/01/17 07/12/17 History Roflumilast [Daliresp] 500 mcg PO DAILY 06/01/17 07/12/17 History Theophylline Anhydrous [Theochron] 300 mg PO DAILY 06/01/17 07/12/17 History predniSONE 20 mg PO DAILY 06/01/17 07/12/17 History Aspirin 81 mg PO DAILY chew 06/06/17 07/12/17 Rx Metoprolol Succinate (ER) [Toprol 25 mg PO DAILY tab.er.24h 06/06/17 07/12/17 Rx XL] clonazePAM [KlonoPIN] 0.5 mg PO BID tab 06/06/17 07/12/17 Rx guaiFENesin [Mucinex] 1,200 mg PO Q12HR tablet.er 06/06/17 07/12/17 Rx Furosemide [Lasix] 40 mg PO DAILY 07/12/17 07/12/17 History Levofloxacin [Levaquin] 500 mg PO DAILY 07/12/17 07/12/17 History Olopatadine HCl [Pataday] 1 drop BOTH EYES DIRECTED 07/12/17 07/12/17 History Polymyxin B-Trimethoprim Ophth 1 drops BOTH EYES DIRECTED 07/12/17 07/12/17 History [Polytrim Opthalmic] Allergies Allergy/AdvReac Type Severity Reaction Status Date / Time No Known Allergies Allergy Verified 07/12/17 08:54 Physical Exam Vitals: Vital Signs Temp Pulse Resp BP Pulse Ox 07/12/17 12:00 97.4 F L 95 17 81/54 89 L 07/12/17 11:45 97 07/12/17 11:00 99 21 91/51 94 L 07/12/17 10:00 95 18 90/43 91 L 07/12/17 09:00 101 H 21 91/53 90 L 07/12/17 08:12 98 07/12/17 08:03 94 96 07/12/17 08:00 97.5 F L 95 18 91/46 98 07/12/17 07:00 103 H 20 87/46 99 07/12/17 04:00 98.2 F 107 H 25 H 82/69 96 07/12/17 03:13 97 07/12/17 03:00 109 H 18 81/41 88 L 07/12/17 02:19 98.6 F 113 H 41 H 91/47 07/12/17 02:04 112 H 20 138/64 93 L 07/12/17 01:20 118 H 24 153/65 96 07/12/17 00:45 112 H 24 192/91 95 07/11/17 23:17 98.5 F 133 H 24 190/90 98 Intake and Output 07/11/17 07/12/17 07/12/17 22:59 06:59 14:59 Intake Total 120 100 Output Total 50 Balance 120 50 Intake: Oral 120 100 Output: Urine 50 Other: # Voids 0 0 Weight 59.7 kg General: The patient is awake and alert she is wearing a BiPAP mask Eye: there is edematous and bilateral conjunctival injection. Cardiovascular: Normal S1-S2, no S3-S4, no murmurs. Respiratory: Lungs diminished on anterior chest auscultation with BiPAP machine sounds Gastrointestinal: Abdomen is soft, nontender Musculoskeletal: There is +1 pedal edema. Skin: Skin is warm and dryThere is diffuse bruising worse on the bilateral upper and lower extremity. Results CBC & Chem 7: 07/12/17 04:40 07/12/17 04:40 Labs: Abnormal Lab Results - Last 24 Hours (Table) 07/11/17 07/11/17 07/11/17 Range/Units 23:46 23:46 23:46 RBC 3.23 L (3.80-5.40) m/uL Hgb 10.1 L (11.4-16.0) gm/dL Hct 33.9 L (34.0-46.0) % MCV 104.8 H (80.0-100.0) fL MCHC 29.9 L (31.0-37.0) g/dL RDW 16.4 H (11.5-15.5) % APTT (22.0-30.0) sec ABG pH (7.35-7.45) ABG pCO2 (35-45) mmHg ABG pO2 (83-108) mmHg ABG HCO3 (21-25) mmol/L ABG Total CO2 (19-24) mmol/L ABG O2 Saturation (94-97) % Sodium 151 H (137-145) mmol/L Carbon Dioxide 38 H (22-30) mmol/L BUN 36 H (7-17) mg/dL Creatinine 1.80 H (0.52-1.04) mg/dL Glucose 69 L (74-99) mg/dL Total Creatine Kinase <20 L (30-135) U/L Troponin I 0.039 H* (0.000-0.034) ng/mL Total Protein 5.8 L (6.3-8.2) g/dL Urine Protein (Negative) Amorphous Sediment (None) /hpf 07/11/17 07/12/17 07/12/17 Range/Units 23:46 04:40 04:40 RBC 2.98 L (3.80-5.40) m/uL Hgb 9.7 L (11.4-16.0) gm/dL Hct 33.0 L (34.0-46.0) % MCV 110.4 H D (80.0-100.0) fL MCHC 29.3 L (31.0-37.0) g/dL RDW 16.6 H (11.5-15.5) % APTT 21.9 L (22.0-30.0) sec ABG pH (7.35-7.45) ABG pCO2 (35-45) mmHg ABG pO2 (83-108) mmHg ABG HCO3 (21-25) mmol/L ABG Total CO2 (19-24) mmol/L ABG O2 Saturation (94-97) % Sodium (137-145) mmol/L Carbon Dioxide (22-30) mmol/L BUN (7-17) mg/dL Creatinine (0.52-1.04) mg/dL Glucose (74-99) mg/dL Total Creatine Kinase (30-135) U/L Troponin I 0.058 H* (0.000-0.034) ng/mL Total Protein (6.3-8.2) g/dL Urine Protein (Negative) Amorphous Sediment (None) /hpf 07/12/17 07/12/17 07/12/17 Range/Units 04:40 10:49 11:10 RBC (3.80-5.40) m/uL Hgb (11.4-16.0) gm/dL Hct (34.0-46.0) % MCV (80.0-100.0) fL MCHC (31.0-37.0) g/dL RDW (11.5-15.5) % APTT (22.0-30.0) sec ABG pH 7.09 L* (7.35-7.45) ABG pCO2 114 H* (35-45) mmHg ABG pO2 172 H (83-108) mmHg ABG HCO3 33 H (21-25) mmol/L ABG Total CO2 37 H (19-24) mmol/L ABG O2 Saturation 99.0 H (94-97) % Sodium 148 H (137-145) mmol/L Carbon Dioxide 31 H (22-30) mmol/L BUN 43 H (7-17) mg/dL Creatinine 1.90 H (0.52-1.04) mg/dL Glucose (74-99) mg/dL Total Creatine Kinase (30-135) U/L Troponin I (0.000-0.034) ng/mL Total Protein (6.3-8.2) g/dL Urine Protein 1+ H (Negative) Amorphous Sediment Rare H (None) /hpf 07/12/17 07/12/17 Range/Units 11:56 12:50 RBC (3.80-5.40) m/uL Hgb (11.4-16.0) gm/dL Hct (34.0-46.0) % MCV (80.0-100.0) fL MCHC (31.0-37.0) g/dL RDW (11.5-15.5) % APTT (22.0-30.0) sec ABG pH 7.19 L* (7.35-7.45) ABG pCO2 84 H* (35-45) mmHg ABG pO2 62 L (83-108) mmHg ABG HCO3 31 H (21-25) mmol/L ABG Total CO2 34 H (19-24) mmol/L ABG O2 Saturation 84.0 L (94-97) % Sodium (137-145) mmol/L Carbon Dioxide (22-30) mmol/L BUN (7-17) mg/dL Creatinine (0.52-1.04) mg/dL Glucose (74-99) mg/dL Total Creatine Kinase (30-135) U/L Troponin I 0.055 H* (0.000-0.034) ng/mL Total Protein (6.3-8.2) g/dL Urine Protein (Negative) Amorphous Sediment (None) /hpf Thrombosis Risk Factor Assmnt - Choose All That Apply Each Factor Represents 1 point: Abnormal pulmonary function (COPD) Each Risk Factor Represents 3 Points: Age 75 years or older Thrombosis Risk Factor Assessment Total Risk Factor Score: 4 Thrombosis Risk Factor Assessment Level: Moderate Risk Assessment and Plan Assessment: 1. Acute hypoxic and hypercapnic respiratory failure 2. Acute respiratory acidosis secondary to CO2 retention 3. Acute COPD exacerbation 4. Chronic hypoxic respiratory failure on home O2 3 L 5. Mild diastolic heart failure exacerbation with evidence of fluid overload on chest x-ray 6. Non-thrombotic troponin leak with no evidence of acute coronary syndrome 7. Hypothyroidism 8. Bilateral conjunctivitis probably secondary to BiPAP use and dryness of the conjunctiva. I would order artificial tears every 6 hours. I would also start the patient on erythromycin eyedrop for now. 9. Essential hypertension, now with hypotension. May be secondary to IV hydralazine use. Systolic blood pressure is 80s at this time conferred with manual blood pressure check. I would order one time bolus of 0.9 NS 500 ml and monitor closely. 10. CODE STATUS: Discussed with the patient by nursing staff and with her daughters at bedside. Patient is DNR/DNI Today, I reviewed her medication list and lab work results. I discussed her current condition with her daughter at bedside. Patient is critically ill. Her prognosis is very guarded. We will continue BiPAP use. Continue bronchodilators and IV steroids. Appreciate senior erp consultant's recommendation. Avoid diuresis today given hypotension. Avoid any antihypertensive medication. Repeat lab work in the morning. Continue ICU care.
[2017-07-12] MEDS: ERYTHROMYCIN 5 MG/GM OPHTH OINT 3.5 GM TUBE BOTH EYES SCH ×2 (15:21→23:27)
[2017-07-12] MEDS: IPRATROPIUM-ALBUTEROL 3 ML NEB INHALATION SCH ×2 (15:57→19:24)
[2017-07-12 16:39] LABS: Iron Saturation 9.17 (12.00-45.00)
[2017-07-12] MEDS: SODIUM CHLORIDE 0.9% 1,000 ML IV SCH (17:41)
[2017-07-12] MEDS: ARTIFICIAL TEARS OINTMENT 3.5 GM TUBE BOTH EYES SCH ×2 (17:46→23:27)
[2017-07-12] MEDS: LORazepam 2 MG/ML INJ IV PRN (18:41)
[2017-07-12] MEDS: NOREPINEPHRIN 4 MG-0.9% NS PMX 4 MG/250 ML ML IV SCH (18:55)
[2017-07-12] MEDS: BUDESONIDE 1 MG/2 ML NEBU INHALATION SCH (19:23)
[2017-07-12] MEDS: FORMOTEROL FUMARATE 20 MCG/2 ML NEBU INHALATION SCH (19:23)
[2017-07-12] MEDS ORDERED: clonazePAM 0.5 MG TAB PO SCH (21:00)
[2017-07-12] MEDS: MONTELUKAST 10 MG TAB PO SCH (22:49)
[2017-07-12] MEDS: LEVOTHYROXINE 100 MCG TAB PO SCH (22:49)
[2017-07-12] MEDS: guaiFENesin 600 MG TABLET.ER PO SCH (22:49)
[2017-07-13] MEDS: IPRATROPIUM-ALBUTEROL 3 ML NEB INHALATION SCH ×6 (00:06→20:40)
[2017-07-13] MEDS: LORazepam 2 MG/ML INJ IV PRN ×2 (01:51→08:57)
[2017-07-13] MEDS: methylPREDNISolone SOD SUCCI 125 MG/2 ML VIAL IV SCH ×4 (05:07→23:29)
[2017-07-13] MEDS: LEVOTHYROXINE 100 MCG TAB PO SCH (05:07)
[2017-07-13] MEDS: SODIUM CHLORIDE 0.9% 1,000 ML IV SCH (05:07)
[2017-07-13] MEDS: NOREPINEPHRIN 4 MG-0.9% NS PMX 4 MG/250 ML ML IV SCH ×2 (05:07→16:24)
[2017-07-13 05:34] LABS: Basophils % (A) 0 %; Eosinophils % (A) 1 %; HCT 32.4 % (34.0-46.0); Hypochromasia Marked; Lymphocytes # (A) 0.4 k/uL (1.0-4.8); Lymphocytes % (A) 4 %; MCH 30.9 pg (25.0-35.0); MCHC 27.7 g/dL (31.0-37.0); MCV 111.3 fL (80.0-100.0); Macrocytosis Marked; Mean Platelet Volume 7.3; Monocytes # (A) 0.2 k/uL (0-1.0); Monocytes % (A) 2 %; Neutrophils # (A) 8.2 k/uL (1.3-7.7); Neutrophils % (A) 92 %; Platelet Count 221 k/uL (150-450); Poikilocytosis Slight; RBC 2.91 m/uL (3.80-5.40); RDW 15.3 % (11.5-15.5); WBC 8.9 k/uL (3.8-10.6)
[2017-07-13 05:49] LABS: Albumin 3.1 g/dL (3.5-5.0); Calcium 8.4 mg/dL (8.4-10.2); Magnesium 2.1 mg/dL (1.6-2.3); Potassium 5.4 mmol/L (3.5-5.1); Total Bilirubin 0.3 mg/dL (0.2-1.3); Total Protein 5.3 g/dL (6.3-8.2)
[2017-07-13 05:57] LABS: Phosphorus 8.8 mg/dL (2.5-4.5)
[2017-07-13] MEDS: FORMOTEROL FUMARATE 20 MCG/2 ML NEBU INHALATION SCH ×2 (07:17→20:40)
[2017-07-13] MEDS: BUDESONIDE 1 MG/2 ML NEBU INHALATION SCH ×2 (07:17→20:40)
--- NOTE | 2017-07-13 07:22 | XR ---
EXAMINATION TYPE: XR chest 1V DATE OF EXAM: 07/13/2017 COMPARISON: Prior chest x-ray 07/12/2017 HISTORY: Shortness of breath TECHNIQUE: Single frontal view of the chest is obtained. FINDINGS: Increased density at the right lung base obscures the right heart border. Suspect the hear t is enlarged interstitium and pulmonary vascularity are prominent. No pneumothorax. There are overly ing cardiac leads. IMPRESSION: Correlate for congestive heart failure. There may be effusions, difficult to exclude pne umonia versus atelectasis or edema. Follow-up recommended.
[2017-07-13] MEDS ORDERED: PANTOPRAZOLE SODIUM 40 MG GRANULE PKT PO SCH (07:30)
[2017-07-13] MEDS: ERYTHROMYCIN 5 MG/GM OPHTH OINT 3.5 GM TUBE BOTH EYES SCH ×3 (08:11→23:29)
[2017-07-13] MEDS: ENOXAPARIN 30 MG/0.3 ML SYRINGE SQ SCH (08:11)
[2017-07-13] MEDS: ARTIFICIAL TEARS OINTMENT 3.5 GM TUBE BOTH EYES SCH ×4 (09:02→23:29)
[2017-07-13] MEDS: guaiFENesin 600 MG TABLET.ER PO SCH ×2 (09:07→20:00)
[2017-07-13] MEDS: PANTOPRAZOLE 40 MG/10 ML VIAL IVP SCH (09:07)
[2017-07-13] MEDS: ASPIRIN 81 MG PO SCH (09:07)
[2017-07-13] MEDS ORDERED: FUROSEMIDE 10 MG/ML 10 ML VIAL IV STA (09:30)
[2017-07-13] MEDS ORDERED: SODIUM CHLORIDE 0.45% 1,000 ML IV SCH (09:30)
[2017-07-13] MEDS: NON-FORMULARY DRUG (Roflumilast [Daliresp] 500 MCG) PO SCH (09:33)
[2017-07-13] MEDS: SODIUM FERRIC GLUCONAT-SUCROSE 125 MG in SODIUM CHLORIDE 0.9% 100 ML IVPB SCH (09:37)
--- NOTE | 2017-07-13 09:37 | P.PN ---
Subjective Patient is seen in follow-up for acute kidney injury. Renal function is worse today with creatinine up to 3.0. Her urine output is about 10 mL an hour. Patient's currently on a BiPAP. She is not a reliable historian. She became quite hypotensive yesterday and is currently maintained on levofed along with IV fluids. She was also noted to have a postvoid residual of 545 mL and has a Farfan catheter in place now. Vital signs are stable. General: The patient appeared well nourished and normally developed. Currently on a BiPAP. HEENT: Head exam is unremarkable. Neck is without jugular venous distension. LUNGS: Scattered rhonchi. Breath sounds decreased. HEART: Rate and Rhythm are regular. First and second heart sounds normal. No murmurs, rubs or gallops. ABDOMEN: Abdominal exam reveals normal bowel sounds. Non-tender and non- distended. No evidence of peritonitis. EXTREMITITES: No clubbing, cyanosis, or edema. Objective - Vital Signs Vital signs: Vital Signs Temp 97.6 F 07/13/17 08:00 Pulse 117 H 07/13/17 09:00 Resp 91 H 07/13/17 09:00 BP 98/34 07/13/17 09:00 Pulse Ox 87 L 07/13/17 09:00 Intake & Output 07/12/17 07/13/17 07/13/17 18:59 06:59 18:59 Intake Total 757.5 1057.875 304.187 Output Total 175 130 30 Balance 582.5 927.875 274.187 Weight 62 kg Intake: IV 825 225 Sodium Chloride 0.9% 1, 825 225 000 ml @ 75 mls/hr IV . [id number] [facility] Rx#:[id number] Intake, IV Titration 657.5 232.875 79.187 Amount Norepinephrin 4 mg-0.9% 7.5 232.875 79.187 Ns Pmx 4 mg In 250 ml @ Titrate IV .Q0M [facility] Rx#: [id number] Sodium Chloride 0.9% 1, 150 000 ml @ 75 mls/hr IV . [id number] [facility] Rx#:[id number] Sodium Chloride 0.9% 500 500 ml @ 999 mls/hr IV .Q31M [facility] Rx#:[id number] Oral 100 Output: Urine 175 130 30 Other: # Voids 0 - Labs CBC & Chem 7: 07/13/17 05:20 07/13/17 05:20 Labs: Abnormal Lab Results - Last 24 Hours (Table) 07/12/17 07/12/17 07/12/17 Range/Units 10:49 11:10 11:56 RBC (3.80-5.40) m/uL Hgb (11.4-16.0) gm/dL Hct (34.0-46.0) % MCV (80.0-100.0) fL MCHC (31.0-37.0) g/dL Neutrophils # (1.3-7.7) k/uL Lymphocytes # (1.0-4.8) k/uL ABG pH 7.09 L* (7.35-7.45) ABG pCO2 114 H* (35-45) mmHg ABG pO2 172 H (83-108) mmHg ABG HCO3 33 H (21-25) mmol/L ABG Total CO2 37 H (19-24) mmol/L ABG O2 Saturation 99.0 H (94-97) % Sodium (137-145) mmol/L Potassium (3.5-5.1) mmol/L Chloride (98-107) mmol/L BUN (7-17) mg/dL Creatinine (0.52-1.04) mg/dL Glucose (74-99) mg/dL Phosphorus (2.5-4.5) mg/dL Iron (50-170) ug/dL Iron Saturation (12.00-45.00) Troponin I 0.055 H* (0.000-0.034) ng/mL Total Protein (6.3-8.2) g/dL Albumin (3.5-5.0) g/dL Urine Protein 1+ H (Negative) Amorphous Sediment Rare H (None) /hpf 07/12/17 07/12/17 07/13/17 Range/Units 11:56 12:50 05:20 RBC 2.91 L (3.80-5.40) m/uL Hgb 9.0 L (11.4-16.0) gm/dL Hct 32.4 L (34.0-46.0) % MCV 111.3 H (80.0-100.0) fL MCHC 27.7 L (31.0-37.0) g/dL Neutrophils # 8.2 H (1.3-7.7) k/uL Lymphocytes # 0.4 L (1.0-4.8) k/uL ABG pH 7.19 L* (7.35-7.45) ABG pCO2 84 H* (35-45) mmHg ABG pO2 62 L (83-108) mmHg ABG HCO3 31 H (21-25) mmol/L ABG Total CO2 34 H (19-24) mmol/L ABG O2 Saturation 84.0 L (94-97) % Sodium (137-145) mmol/L Potassium (3.5-5.1) mmol/L Chloride (98-107) mmol/L BUN (7-17) mg/dL Creatinine (0.52-1.04) mg/dL Glucose (74-99) mg/dL Phosphorus (2.5-4.5) mg/dL Iron 21 L (50-170) ug/dL Iron Saturation 9.17 L (12.00-45.00) Troponin I (0.000-0.034) ng/mL Total Protein (6.3-8.2) g/dL Albumin (3.5-5.0) g/dL Urine Protein (Negative) Amorphous Sediment (None) /hpf 07/13/17 Range/Units 05:20 RBC (3.80-5.40) m/uL Hgb (11.4-16.0) gm/dL Hct (34.0-46.0) % MCV (80.0-100.0) fL MCHC (31.0-37.0) g/dL Neutrophils # (1.3-7.7) k/uL Lymphocytes # (1.0-4.8) k/uL ABG pH (7.35-7.45) ABG pCO2 (35-45) mmHg ABG pO2 (83-108) mmHg ABG HCO3 (21-25) mmol/L ABG Total CO2 (19-24) mmol/L ABG O2 Saturation (94-97) % Sodium 148 H (137-145) mmol/L Potassium 5.4 H (3.5-5.1) mmol/L Chloride 108 H (98-107) mmol/L BUN 65 H (7-17) mg/dL Creatinine 3.00 H (0.52-1.04) mg/dL Glucose 112 H (74-99) mg/dL Phosphorus 8.8 H* (2.5-4.5) mg/dL Iron (50-170) ug/dL Iron Saturation (12.00-45.00) Troponin I (0.000-0.034) ng/mL Total Protein 5.3 L (6.3-8.2) g/dL Albumin 3.1 L (3.5-5.0) g/dL Urine Protein (Negative) Amorphous Sediment (None) /hpf Microbiology - Last 24 Hours (Table) 07/11/17 00:01 Blood Culture - Preliminary Blood No Growth after 24 hours 07/12/17 11:10 Urine Culture - Preliminary Urine,Catheterized Assessment and Plan Plan: Assessment: #1. Nonoliguric acute kidney injury secondary to ischemic ATN secondary to hypotension. Creatinine up to 3.0 today. Her bladder scan was also over 500 and now has a Farfan catheter in place. #2. Hypernatremia secondary to lack of oral water intake. #3. Hyperphosphatemia due to acute kidney injury. #4. Anemia with iron deficiency noted. #5. Diastolic CHF. #6. Acute hypercapnic respiratory failure secondary to COPD exacerbation. Plan: I will change IV fluids to half-normal saline to be run at 75 mL an hour. Lasix 60 mg IV once today. Wean levofed. Avoid nephrotoxic agents and hypotensive episodes. Ferrlecit 125 mg IV daily for 3 days. First dose today. Add Renvela 800 mg 3 times daily with meals. Continue to monitor renal function and urine output closely. No family present at bedside at this time. If renal function continues to deteriorate, will need to consider renal replacement therapy.
[2017-07-13] MEDS ORDERED: DEXTROSE 5% IN WATER 1,000 ML with SODIUM BICARB (1 MEQ/ML) 150 ML IV ONE (10:57)
[2017-07-13 11:13] LABS: ABG Base Excess -2.8 mmol/L; ABG HCO3 27 mmol/L (21-25); ABG TCO2 30 mmol/L (19-24)
[2017-07-13 11:14] LABS: ABG PH 7.04 (7.35-7.45)
[2017-07-13 11:15] LABS: ABG Oxygen Saturation 78.6 % (94-97); ABG PCO2 106 mmHg (35-45); ABG PO2 65 mmHg (83-108)
[2017-07-13] MEDS ORDERED: PIPERACILLIN-TAZOBACTAM 3.375 GM in DEXTROSE/WATER 1 50ML.BAG IVPB SCH (11:15)
--- NOTE | 2017-07-13 11:20 | P.PN ---
Subjective Patient's overall condition is deteriorating. Overnight her blood pressure continued to drop and she is currently on Levothroid. Her kidney function is also worsening. Objective - Vital Signs Vital signs: Vital Signs Temp 97.6 F 07/13/17 08:00 Pulse 106 H 07/13/17 11:00 Resp 23 07/13/17 11:00 BP 110/40 07/13/17 11:00 Pulse Ox 89 L 07/13/17 11:00 Intake & Output 07/12/17 07/13/17 07/13/17 18:59 06:59 18:59 Intake Total 757.5 1057.875 554.187 Output Total 175 130 45 Balance 582.5 927.875 509.187 Weight 62 kg Intake: IV 825 225 Sodium Chloride 0.9% 1, 825 225 000 ml @ 75 mls/hr IV . [id number] [facility] Rx#:[id number] Intake, IV Titration 657.5 232.875 329.187 Amount Norepinephrin 4 mg-0.9% 7.5 232.875 79.187 Ns Pmx 4 mg In 250 ml @ Titrate IV .Q0M [facility] Rx#: [id number] Sodium Chloride 0.45% 1, 150 000 ml @ 75 mls/hr IV . [id number] [facility] Rx#:[id number] Sodium Chloride 0.9% 1, 150 000 ml @ 75 mls/hr IV . [id number] [facility] Rx#:[id number] Sodium Chloride 0.9% 500 500 ml @ 999 mls/hr IV .Q31M [facility] Rx#:[id number] Sodium Ferric Gluconat- 100 Sucrose 125 mg In Sodium Chloride 0.9% 100 ml @ 100 mls/hr IVPB DAILY [facility] Rx#:[id number] Oral 100 Output: Urine 175 130 45 Other: # Voids 0 - Exam General: The patient is awake. She appears acutely ill. Neck: The neck is supple, Cardiovascular: Normal S1-S2, no S3-S4, no murmurs. Respiratory: Lungs with BiPAP machine sounds Gastrointestinal: Abdomen is soft, nontender Musculoskeletal: There is +1 pedal edema. Skin: Skin is warm and dry. There is diffuse bruising mostly to the upper extremities. - Labs CBC & Chem 7: 07/13/17 05:20 07/13/17 05:20 Labs: Abnormal Lab Results - Last 24 Hours (Table) 07/12/17 07/12/17 07/12/17 Range/Units 11:10 11:56 11:56 RBC (3.80-5.40) m/uL Hgb (11.4-16.0) gm/dL Hct (34.0-46.0) % MCV (80.0-100.0) fL MCHC (31.0-37.0) g/dL Neutrophils # (1.3-7.7) k/uL Lymphocytes # (1.0-4.8) k/uL ABG pH (7.35-7.45) ABG pCO2 (35-45) mmHg ABG pO2 (83-108) mmHg ABG HCO3 (21-25) mmol/L ABG Total CO2 (19-24) mmol/L ABG O2 Saturation (94-97) % Sodium (137-145) mmol/L Potassium (3.5-5.1) mmol/L Chloride (98-107) mmol/L BUN (7-17) mg/dL Creatinine (0.52-1.04) mg/dL Glucose (74-99) mg/dL Phosphorus (2.5-4.5) mg/dL Iron 21 L (50-170) ug/dL Iron Saturation 9.17 L (12.00-45.00) Troponin I 0.055 H* (0.000-0.034) ng/mL Total Protein (6.3-8.2) g/dL Albumin (3.5-5.0) g/dL Urine Protein 1+ H (Negative) Amorphous Sediment Rare H (None) /hpf 07/12/17 07/13/17 07/13/17 Range/Units 12:50 05:20 05:20 RBC 2.91 L (3.80-5.40) m/uL Hgb 9.0 L (11.4-16.0) gm/dL Hct 32.4 L (34.0-46.0) % MCV 111.3 H (80.0-100.0) fL MCHC 27.7 L (31.0-37.0) g/dL Neutrophils # 8.2 H (1.3-7.7) k/uL Lymphocytes # 0.4 L (1.0-4.8) k/uL ABG pH 7.19 L* (7.35-7.45) ABG pCO2 84 H* (35-45) mmHg ABG pO2 62 L (83-108) mmHg ABG HCO3 31 H (21-25) mmol/L ABG Total CO2 34 H (19-24) mmol/L ABG O2 Saturation 84.0 L (94-97) % Sodium 148 H (137-145) mmol/L Potassium 5.4 H (3.5-5.1) mmol/L Chloride 108 H (98-107) mmol/L BUN 65 H (7-17) mg/dL Creatinine 3.00 H (0.52-1.04) mg/dL Glucose 112 H (74-99) mg/dL Phosphorus 8.8 H* (2.5-4.5) mg/dL Iron (50-170) ug/dL Iron Saturation (12.00-45.00) Troponin I (0.000-0.034) ng/mL Total Protein 5.3 L (6.3-8.2) g/dL Albumin 3.1 L (3.5-5.0) g/dL Urine Protein (Negative) Amorphous Sediment (None) /hpf 07/13/17 Range/Units 10:57 RBC (3.80-5.40) m/uL Hgb (11.4-16.0) gm/dL Hct (34.0-46.0) % MCV (80.0-100.0) fL MCHC (31.0-37.0) g/dL Neutrophils # (1.3-7.7) k/uL Lymphocytes # (1.0-4.8) k/uL ABG pH 7.04 L* (7.35-7.45) ABG pCO2 106 H* (35-45) mmHg ABG pO2 65 L (83-108) mmHg ABG HCO3 27 H (21-25) mmol/L ABG Total CO2 30 H (19-24) mmol/L ABG O2 Saturation 78.6 L (94-97) % Sodium (137-145) mmol/L Potassium (3.5-5.1) mmol/L Chloride (98-107) mmol/L BUN (7-17) mg/dL Creatinine (0.52-1.04) mg/dL Glucose (74-99) mg/dL Phosphorus (2.5-4.5) mg/dL Iron (50-170) ug/dL Iron Saturation (12.00-45.00) Troponin I (0.000-0.034) ng/mL Total Protein (6.3-8.2) g/dL Albumin (3.5-5.0) g/dL Urine Protein (Negative) Amorphous Sediment (None) /hpf Microbiology - Last 24 Hours (Table) 07/11/17 00:01 Blood Culture - Preliminary Blood No Growth after 24 hours 07/12/17 11:10 Urine Culture - Preliminary Urine,Catheterized Assessment and Plan Assessment: 1. Acute hypoxic and hypercapnic respiratory failure 2. Acute respiratory acidosis secondary to CO2 retention 3. Acute COPD exacerbation 4. Chronic hypoxic respiratory failure on home O2 3 L 5. Mild diastolic heart failure exacerbation with evidence of fluid overload on chest x-ray 6. Non-thrombotic troponin leak with no evidence of acute coronary syndrome 7. Hypothyroidism 8. Bilateral conjunctivitis probably secondary to BiPAP use and dryness of the conjunctiva. I would order artificial tears every 6 hours. I would also start the patient on erythromycin eyedrop for now. 9. Essential hypertension, now with hypotension. Requiring vasopressors 10. Acute renal failure, secondary to hypotension and possible ATN. 11. CODE STATUS: Discussed with the patient by nursing staff and with her daughters at bedside. Patient is DNR/DNI Today, I reviewed her medication list and lab work results. Patient remains critically ill. Her prognosis is guarded. Continue ICU management per ICU team. Nephrology following. Continue vasopressors to maintain mean arterial pressure greater than 60.
[2017-07-13] MEDS: LEVOTHYROXINE IVP 100 MCG/5 ML VIAL IV SCH (11:24)
[2017-07-13] MEDS: SEVELAMER 800 MG TAB PO SCH ×2 (12:50→16:59)
[2017-07-13 13:28] VITALS: BMI 26.6
--- NOTE | 2017-07-13 14:36 | CDI ---
Last Revision, May 2017 Documentation Clarification Form Date: 07/13/2017 2:26:00 PM From: Soledad Akhtar Admit Date: 07/12/2017 1:47:00 AM Patient Name: Amina May Visit Number: [id number] ATTENTION: The Clinical Documentation Specialists (CDI) and [facility] Coding Staff appreciate your assistance in clarifying documentation. Please respond to the clarification below the line at the bottom and electronically sign. The CDI & [facility] Coding staff will review the response and follow-up if needed. Please note: Queries are made part of the Legal Health Record. If you have any questions, please contact the author of this message via ITS. Dr. Pavan Hood History/Risk Factors: Hx of CKD with baseline Creatinine around 1.5 per Nephrology documentation Clinical Indicators: Current BUN: 36/43/65 CR: 1.8/1.9/3.0 GFR: /15 06/01/17 Patients Baseline: BUN/CR/GFR: 37/1.55/32 Treatment: IVF: 500 cc IVF Bolus Levophed Gtt titrate for B/P 7 Dosed of IVP Lasix In order to capture the severity of condition, please clarify if the condition signifies: CKD Stage 1 (GFR > 90) CKD Stage 2 (GFR 60-89) CKD Stage 3 (GFR 30-59) CKD Stage 4 (GFR 15-29) CKD Stage 5 (GFR <15) ESRD Other, please specify Unable to determine Please continue to document in your progress notes and discharge summary in order to capture severity of illness and risk of mortality. Include clinical findings that support your diagnosis. MTDD
--- NOTE | 2017-07-13 14:41 | P.PN ---
Subjective Progress Note Date: 07/13/17 82-year-old female patient who presented yesterday to the emergency department with increased shortness of breath and acute hypercapnic respiratory failure. The patient has known to me. I took care of her in approximately a month ago when she came into the hospital because of a similar presentation. She has an advanced goal stage IV disease and she has chronic hypoxic respiratory failure and she is oxygen dependent. In addition, the patient has history of CHF with diastolic dysfunction and an ejection fraction of 55-60%, hyperlipidemia, hypothyroidism and chronic renal failure as the patient's baseline creatinine is been between 1.5 - 1.7. Note that yesterday's blood gases showed severe restrictive acidosis. The patient had a pH of 7.19 with a pCO2 of 84 and pO2 of 62 and this was done and FiO2 of 40% while the patient on a BiPAP at a pressure of 10/5 cm of water. This morning, the blood gases looked even worse. PH was at 7.04 with a pCO2 of 106 and pO2 of 65 and based on that I increased the IPAP up to 13 and EPAP at 5, with an FiO2 of 45%. I also noted that the patient has developed an acute on top of chronic renal failure. His most recent blood work showed a pattern of 3.0. The patient's bicarb was down to 27 note that the patient carries a bicarb level of around above 35. Clinically, the patient was barely responsive. I was told that she was quite agitated earlier during the night and she seemed to be much more sedated at the time of my evaluation. She is on IV Zosyn. She is on DuoNeb nebulized treatment around -the-clock. She is also on IV Solu Medrol 60 mg every 6 hours. She is honestly bronchospastic and wheezy and a significant limitation air entry bilaterally and throughout the lung saab. Chest x-ray shows CHF and underlying pneumonia cannot be completely excluded. There is extensive density in the right lung base obscuring the right heart border and there is also a large interstitial and pulmonary vascularity. Objective - Vital Signs Vital signs: Vital Signs Temp 97.9 F 07/13/17 12:00 Pulse 105 H 07/13/17 13:00 Resp 26 H 07/13/17 13:00 BP 89/31 07/13/17 13:00 Pulse Ox 86 L 07/13/17 13:00 Intake & Output 07/12/17 07/13/17 07/13/17 18:59 06:59 18:59 Intake Total 757.5 1057.875 767.874 Output Total 175 130 65 Balance 582.5 927.875 702.874 Weight 62 kg 62 kg Intake: IV 825 225 Sodium Chloride 0.9% 1, 825 225 000 ml @ 75 mls/hr IV . [id number] [facility] Rx#:[id number] Intake, IV Titration 657.5 232.875 542.874 Amount Dextrose 5% in Water 1, 150 000 ml @ 75 mls/hr IV . [id number] [facility] with Sodium Bicarb (1 Meq/ml) 150 ml Rx#:[id number] Norepinephrin 4 mg-0.9% 7.5 232.875 122.874 Ns Pmx 4 mg In 250 ml @ Titrate IV .Q0M [facility] Rx#: [id number] Sodium Chloride 0.45% 1, 170 000 ml @ 75 mls/hr IV . [id number] [facility] Rx#:[id number] Sodium Chloride 0.9% 1, 150 000 ml @ 75 mls/hr IV . [id number] [facility] Rx#:[id number] Sodium Chloride 0.9% 500 500 ml @ 999 mls/hr IV .Q31M [facility] Rx#:[id number] Sodium Ferric Gluconat- 100 Sucrose 125 mg In Sodium Chloride 0.9% 100 ml @ 100 mls/hr IVPB DAILY [facility] Rx#:[id number] Oral 100 Output: Urine 175 130 65 Other: # Voids 0 - Exam GENERAL EXAM: Alert, 82-year-old white female, the patient is tolerating a full face BiPAP. The patient is in significant hypercapnic respiratory failure and CO2 narcosis. She is in [id number] degree of respiratory distress even when wearing the BiPAP and using some excessive ecchymosis of breathing. HEAD: Normocephalic/atraumatic. EYES: Normal reaction of pupils, equal size. Conjunctiva pink, sclera white. NOSE: Clear with pink turbinates. THROAT: No erythema or exudates. NECK: No masses, no JVD, no thyroid enlargement, no adenopathy. CHEST: No chest wall deformity. Symmetrical expansion. There is diffuse extremity wheezes throughout the lung saab bilaterally. Air entry is markedly diminished throughout the lung saab. LUNGS: diminished overall. CVS: Regular rate and rhythm, normal S1 and S2, no gallops, no murmurs, no rubs ABDOMEN: Soft, nontender. No hepatosplenomegaly, normal bowel sounds, no guarding or rigidity. EXTREMITIES: No clubbing, no edema, no cyanosis, 2+ pulses and upper and lower extremities. MUSCULOSKELETAL: Muscle strength and tone normal. SPINE: No scoliosis or deformity SKIN: No rashes CENTRAL NERVOUS SYSTEM: Patient is unresponsive and currently she is quite acidotic and she withdraws only to painful stimuli. Motor function and sensory functions cannot be assessed. No apparent facial asymmetry. No apparent cranial nerve deficits at this point. PSYCHIATRIC: Cannot be assessed due to the reasons mentioned above - Labs CBC & Chem 7: 07/13/17 05:20 07/13/17 05:20 Labs: Abnormal Lab Results - Last 24 Hours (Table) 07/12/17 07/13/17 07/13/17 Range/Units 11:56 05:20 05:20 RBC 2.91 L (3.80-5.40) m/uL Hgb 9.0 L (11.4-16.0) gm/dL Hct 32.4 L (34.0-46.0) % MCV 111.3 H (80.0-100.0) fL MCHC 27.7 L (31.0-37.0) g/dL Neutrophils # 8.2 H (1.3-7.7) k/uL Lymphocytes # 0.4 L (1.0-4.8) k/uL ABG pH (7.35-7.45) ABG pCO2 (35-45) mmHg ABG pO2 (83-108) mmHg ABG HCO3 (21-25) mmol/L ABG Total CO2 (19-24) mmol/L ABG O2 Saturation (94-97) % Sodium 148 H (137-145) mmol/L Potassium 5.4 H (3.5-5.1) mmol/L Chloride 108 H (98-107) mmol/L BUN 65 H (7-17) mg/dL Creatinine 3.00 H (0.52-1.04) mg/dL Glucose 112 H (74-99) mg/dL Phosphorus 8.8 H* (2.5-4.5) mg/dL Iron 21 L (50-170) ug/dL Iron Saturation 9.17 L (12.00-45.00) Total Protein 5.3 L (6.3-8.2) g/dL Albumin 3.1 L (3.5-5.0) g/dL 07/13/17 Range/Units 10:57 RBC (3.80-5.40) m/uL Hgb (11.4-16.0) gm/dL Hct (34.0-46.0) % MCV (80.0-100.0) fL MCHC (31.0-37.0) g/dL Neutrophils # (1.3-7.7) k/uL Lymphocytes # (1.0-4.8) k/uL ABG pH 7.04 L* (7.35-7.45) ABG pCO2 106 H* (35-45) mmHg ABG pO2 65 L (83-108) mmHg ABG HCO3 27 H (21-25) mmol/L ABG Total CO2 30 H (19-24) mmol/L ABG O2 Saturation 78.6 L (94-97) % Sodium (137-145) mmol/L Potassium (3.5-5.1) mmol/L Chloride (98-107) mmol/L BUN (7-17) mg/dL Creatinine (0.52-1.04) mg/dL Glucose (74-99) mg/dL Phosphorus (2.5-4.5) mg/dL Iron (50-170) ug/dL Iron Saturation (12.00-45.00) Total Protein (6.3-8.2) g/dL Albumin (3.5-5.0) g/dL Microbiology - Last 24 Hours (Table) 07/12/17 11:10 Urine Culture - Final Urine,Catheterized 07/11/17 00:01 Blood Culture - Preliminary Blood No Growth after 24 hours Assessment and Plan Plan: #1. Acute on chronic hypoxic and hypercapnic respiratory failure secondary to COPD exacerbation and acute onset diastolic heart failure. The patient is severe respiratory and metabolic acidosis. The patient is currently on BiPAP. Note that she is a DNR/DNI CODE STATUS and based on that no intubation has been performed. The patient is currently on a BiPAP and a settings have been adjusted to a BiPAP pressure of 50/5 cm of water. The follow-up plans will be obtained. I also added some bicarb to counteract her underlying metabolic acidosis. #2. CHF with a component of diastolic dysfunction #3. Chronic renal failure with acute kidney injury on top of chronic renal insufficiency. The patient has mild hyperkalemia with a potassium level of 5.4. There is also a component of mild hyperchloremic hypernatremia with a sodium level of 148. There is a relative acidosis going to the patient's serum bicarbonate has been essentially above 35 and currently serum bicarb is down to 27. #4. 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 Elevated troponins, topped out at 0.181 #6. Diastolic heart failure, EF 55-60% #7. Nicotine dependence, in remission #8. Hyperlipidemia #9. Hypothyroidism Plan Keep the patient nothing by mouth for now. Continue BiPAP therapy for restless support. Necessary vent/BiPAP changes were done. Monitor the blood gases. Start the patient on bicarb drip with D5 and 3 A of bicarb is at the rate of 75 mL an hour. Monitor the blood gases. Monitor the respiratory and metabolic acidosis. Monitor renal function. The patient will be kept on DuoNeb nebulized treatments around the clock, IV Solu-Medrol, IV Zosyn as an empiric antibiotic coverage. The proximal on the case. Switch Synthroid to IV. Prognosis very poor baseline above-mentioned comorbidities. This is the patient 's third hospitalization over the past month. They stopped performance and functional status is poor. She carries a high mortality based on the above. We 'll continue following up this patient make further recommendations based on her progress. I contacted the daughter over the phone and she will be arriving from [place]. There is another daughter the bedside. This is a critically care evaluation that was done and more than 35 minutes. Time with Patient: Greater than 30
[2017-07-13 17:25] LABS: ABG PCO2 102 mmHg (35-45); ABG PH 7.09 (7.35-7.45)
[2017-07-13 17:26] LABS: ABG Base Excess 0.3 mmol/L; ABG HCO3 30 mmol/L (21-25); ABG PO2 38 mmHg (83-108); ABG TCO2 33 mmol/L (19-24)
[2017-07-13 19:34] LABS: Albumin 2.7 g/dL (3.5-5.0); Calcium 7.6 mg/dL (8.4-10.2); Potassium 5.8 mmol/L (3.5-5.1); Total Bilirubin 0.4 mg/dL (0.2-1.3); Total Protein 4.8 g/dL (6.3-8.2)
[2017-07-13] MEDS: MONTELUKAST 10 MG TAB PO SCH (20:00)
[2017-07-13] MEDS: PIPERACILLIN-TAZOBACTAM 3.375 GM in DEXTROSE/WATER 1 50ML.BAG IVPB SCH (20:23)
[2017-07-14] MEDS: IPRATROPIUM-ALBUTEROL 3 ML NEB INHALATION SCH ×6 (00:09→21:01)
[2017-07-14] MEDS: NOREPINEPHRIN 4 MG-0.9% NS PMX 4 MG/250 ML ML IV SCH (00:54)
[2017-07-14 04:47] LABS: HCT 27.1 % (34.0-46.0); HGB 8.1 gm/dL (11.4-16.0); Hypochromasia Marked; MCH 32.2 pg (25.0-35.0); MCV 107.2 fL (80.0-100.0); Macrocytosis Marked; Mean Platelet Volume 8.2; Platelet Count 155 k/uL (150-450); Poikilocytosis Slight; RBC 2.53 m/uL (3.80-5.40); RDW 15.3 % (11.5-15.5)
--- NOTE | 2017-07-14 04:57 | PN ---
PROGRESS NOTE The patient's medical records are reviewed. She is an 82-year-old female, who was admitted with acute respiratory failure and currently has been intubated. The patient had a borderline elevation in the troponin, which could be secondary to her respiratory distress and hypoxia. The patient is currently intubated. Patient is getting the Levophed drip and her creatinine is going up. The patient is a DNR. First and second heart sounds are normal. Lungs reveal few scattered wheezes. We will continue the current supportive treatment. MMODL / IJN: [id number] /
[2017-07-14 05:14] LABS: Band Neutrophils % 3 %; Lymphocytes # (M) 0.54 k/uL (1.0-4.8); Monocytes # (M) 0.09 k/uL (0-1.0); Neutrophils % (M) 90 %; Nucleated Red Blood Cells 1 /100 WBC (0-0); Total Cells Counted 200
[2017-07-14 05:15] LABS: Basophilic Stippling Present
[2017-07-14 05:26] LABS: ALT 22 U/L (9-52); AST 36 U/L (14-36); Albumin 2.7 g/dL (3.5-5.0); Alkaline Phosphatase <20 U/L (38-126); Anion Gap 12 mmol/L; Blood Urea Nitrogen 79 mg/dL (7-17); Calcium 7.3 mg/dL (8.4-10.2); Carbon Dioxide 28 mmol/L (22-30); Chloride 108 mmol/L (98-107); Glucose 254 mg/dL (74-99); Magnesium 2.1 mg/dL (1.6-2.3); Sodium 148 mmol/L (137-145); Total Bilirubin 0.8 mg/dL (0.2-1.3); Total Protein 4.9 g/dL (6.3-8.2)
[2017-07-14 05:31] LABS: Potassium 6.6 mmol/L (3.5-5.1)
[2017-07-14 05:32] LABS: Phosphorus 8.5 mg/dL (2.5-4.5)
[2017-07-14] MEDS ORDERED: INSULIN REGULAR 100 UNIT/ML VIAL SQ STA (06:20)
[2017-07-14] MEDS ORDERED: FUROSEMIDE 10 MG/ML 10 ML VIAL IV STA (06:21)
[2017-07-14] MEDS ORDERED: DEXTROSE 50%-WATER 50 ML SYRINGE IVP STA (06:22)
[2017-07-14] MEDS ORDERED: ALBUTEROL NEBULIZED (CONC) 5 MG, SODIUM CHLORIDE 0.9% NEBULIZ 3 ML INHALATION STA ×2 (06:23)
[2017-07-14] MEDS: methylPREDNISolone SOD SUCCI 125 MG/2 ML VIAL IV SCH ×3 (06:43→18:07)
[2017-07-14] MEDS ORDERED: ALBUTEROL NEBULIZED (CONC) 15 MG, SODIUM CHLORIDE 0.9% NEBULIZ 3 ML INHALATION STA ×2 (07:03)
[2017-07-14] MEDS: BUDESONIDE 1 MG/2 ML NEBU INHALATION SCH ×2 (07:30→21:01)
[2017-07-14] MEDS: FORMOTEROL FUMARATE 20 MCG/2 ML NEBU INHALATION SCH ×2 (07:30→21:01)
[2017-07-14] MEDS: SEVELAMER 800 MG TAB PO SCH ×3 (07:38→18:07)
--- NOTE | 2017-07-14 08:34 | P.PN ---
Subjective Progress Note Date: 07/14/17 82-year-old female patient who presented yesterday to the emergency department with increased shortness of breath and acute hypercapnic respiratory failure. The patient has known to me. I took care of her in approximately a month ago when she came into the hospital because of a similar presentation. She has an advanced goal stage IV disease and she has chronic hypoxic respiratory failure and she is oxygen dependent. In addition, the patient has history of CHF with diastolic dysfunction and an ejection fraction of 55-60%, hyperlipidemia, hypothyroidism and chronic renal failure as the patient's baseline creatinine is been between 1.5 - 1.7. Note that yesterday's blood gases showed severe restrictive acidosis. The patient had a pH of 7.19 with a pCO2 of 84 and pO2 of 62 and this was done and FiO2 of 40% while the patient on a BiPAP at a pressure of 10/5 cm of water. This morning, the blood gases looked even worse. PH was at 7.04 with a pCO2 of 106 and pO2 of 65 and based on that I increased the IPAP up to 13 and EPAP at 5, with an FiO2 of 45%. I also noted that the patient has developed an acute on top of chronic renal failure. His most recent blood work showed a pattern of 3.0. The patient's bicarb was down to 27 note that the patient carries a bicarb level of around above 35. Clinically, the patient was barely responsive. I was told that she was quite agitated earlier during the night and she seemed to be much more sedated at the time of my evaluation. She is on IV Zosyn. She is on DuoNeb nebulized treatment around -the-clock. She is also on IV Solu Medrol 60 mg every 6 hours. She is honestly bronchospastic and wheezy and a significant limitation air entry bilaterally and throughout the lung saab. Chest x-ray shows CHF and underlying pneumonia cannot be completely excluded. There is extensive density in the right lung base obscuring the right heart border and there is also a large interstitial and pulmonary vascularity. On 07/14/2017, I'm seeing this patient for a follow-up. The patient is still doing very poorly. She is unresponsive. She is on a BiPAP at a pressure of 14/ 5 cm of water with an FiO2 of 80%. Her current pulse ox is around 97% and I'm awaiting the follow-up blood gases. Meanwhile, she was in severe respiratory acidosis yesterday which was a combination of respiratory and metabolic. She was managed with BiPAP knowing that the patient has a DNR/DNI CODE STATUS. She was started on a bicarb drip which is currently running at 75 mL an hour. I am awaiting her morning blood gases to be repeated today. Meanwhile I noted an elevation in the potassium up to 6.6. This is probably related to her severe acidosis. She was given 12.5 mg of albuterol updrafts continuous, she was also given bicarb drip and she'll be also started on insulin drip to shift her potassium intracellular. A repeat potassium will be done. Hemodynamically, the patient is on no pressors. She is not producing any urine output. She was given a total of 80 mg IV Lasix this morning without much benefit. Chest x-ray shows worsening in the volume status and there is possibly development of bilateral pleural effusion more so in the lung bases. She is afebrile. White cell count is not elevated. She has developed an acute on top of a chronic renal failure. Creatinine is up to 3.98. Her bicarb level is up to 28. Objective - Vital Signs Vital signs: Vital Signs Temp 98.6 F 07/14/17 04:00 Pulse 114 H 07/14/17 07:31 Resp 19 07/14/17 07:00 BP 121/50 07/14/17 07:00 Pulse Ox 98 07/14/17 07:00 Intake & Output 07/13/17 07/14/17 07/14/17 18:59 06:59 18:59 Intake Total 6657.486 8744.625 75 Output Total 115 65 0 Balance 5568.603 3536.625 75 Weight 62 kg 64.2 kg Intake: IV 225 Sodium Chloride 0.9% 1, 225 000 ml @ 75 mls/hr IV . [id number] [facility] Rx#:[id number] Intake, IV Titration 2076.206 9778.625 75 Amount Dextrose 5% in Water 1, 525 900 75 000 ml @ 75 mls/hr IV . [id number] ONE with Sodium Bicarb (1 Meq/ml) 150 ml Rx#:[id number] Norepinephrin 4 mg-0.9% 201.999 273.625 Ns Pmx 4 mg In 250 ml @ Titrate IV .Q0M [facility] Rx#: [id number] Sodium Chloride 0.45% 1, 270 200 000 ml @ 75 mls/hr IV . [id number] [facility] Rx#:[id number] Sodium Ferric Gluconat- 100 Sucrose 125 mg In Sodium Chloride 0.9% 100 ml @ 100 mls/hr IVPB DAILY [facility] Rx#:[id number] Output: Urine 115 65 0 - Exam GENERAL EXAM: Alert, 82-year-old white female, the patient is tolerating a full face BiPAP. The patient is in significant hypercapnic respiratory failure and CO2 narcosis. She is in [id number] degree of respiratory distress even when wearing the BiPAP and using some excessive muscles of breathing. HEAD: Normocephalic/atraumatic. EYES: Normal reaction of pupils, equal size. Conjunctiva pink, sclera white. NOSE: Clear with pink turbinates. THROAT: No erythema or exudates. NECK: No masses, no JVD, no thyroid enlargement, no adenopathy. CHEST: No chest wall deformity. Symmetrical expansion. There is diffuse extremity wheezes throughout the lung saab bilaterally. Air entry is markedly diminished throughout the lung saab. LUNGS: diminished overall. CVS: Regular rate and rhythm, normal S1 and S2, no gallops, no murmurs, no rubs ABDOMEN: Soft, nontender. No hepatosplenomegaly, normal bowel sounds, no guarding or rigidity. EXTREMITIES: No clubbing, no edema, no cyanosis, 2+ pulses and upper and lower extremities. MUSCULOSKELETAL: Muscle strength and tone normal. SPINE: No scoliosis or deformity SKIN: No rashes CENTRAL NERVOUS SYSTEM: Patient is unresponsive and currently she is quite acidotic and she withdraws only to painful stimuli. Motor function and sensory functions cannot be assessed. No apparent facial asymmetry. No apparent cranial nerve deficits at this point. PSYCHIATRIC: Cannot be assessed due to the reasons mentioned above - Labs CBC & Chem 7: 07/14/17 04:22 07/14/17 04:22 Labs: Abnormal Lab Results - Last 24 Hours (Table) 07/13/17 07/13/17 07/13/17 Range/Units 10:57 17:02 18:43 RBC (3.80-5.40) m/uL Hgb (11.4-16.0) gm/dL Hct (34.0-46.0) % MCV (80.0-100.0) fL MCHC (31.0-37.0) g/dL Neutrophils # (Manual) (1.3-7.7) k/uL Lymphocytes # (Manual) (1.0-4.8) k/uL Nucleated RBCs (0-0) /100 WBC ABG pH 7.04 L* 7.09 L* (7.35-7.45) ABG pCO2 106 H* 102 H* (35-45) mmHg ABG pO2 65 L 38 L* (83-108) mmHg ABG HCO3 27 H 30 H (21-25) mmol/L ABG Total CO2 30 H 33 H (19-24) mmol/L ABG O2 Saturation 78.6 L 50.0 L (94-97) % Sodium 148 H (137-145) mmol/L Potassium 5.8 H (3.5-5.1) mmol/L Chloride (98-107) mmol/L BUN 74 H (7-17) mg/dL Creatinine 3.60 H (0.52-1.04) mg/dL Glucose 199 H (74-99) mg/dL Calcium 7.6 L (8.4-10.2) mg/dL Phosphorus (2.5-4.5) mg/dL Alkaline Phosphatase (38-126) U/L Total Protein 4.8 L (6.3-8.2) g/dL Albumin 2.7 L (3.5-5.0) g/dL 07/14/17 07/14/17 Range/Units 04:22 04:22 RBC 2.53 L (3.80-5.40) m/uL Hgb 8.1 L (11.4-16.0) gm/dL Hct 27.1 L (34.0-46.0) % MCV 107.2 H (80.0-100.0) fL MCHC 30.0 L (31.0-37.0) g/dL Neutrophils # (Manual) 8.30 H (1.3-7.7) k/uL Lymphocytes # (Manual) 0.54 L (1.0-4.8) k/uL Nucleated RBCs 1 H (0-0) /100 WBC ABG pH (7.35-7.45) ABG pCO2 (35-45) mmHg ABG pO2 (83-108) mmHg ABG HCO3 (21-25) mmol/L ABG Total CO2 (19-24) mmol/L ABG O2 Saturation (94-97) % Sodium 148 H (137-145) mmol/L Potassium 6.6 H* (3.5-5.1) mmol/L Chloride 108 H (98-107) mmol/L BUN 79 H (7-17) mg/dL Creatinine 3.98 H (0.52-1.04) mg/dL Glucose 254 H (74-99) mg/dL Calcium 7.3 L (8.4-10.2) mg/dL Phosphorus 8.5 H* (2.5-4.5) mg/dL Alkaline Phosphatase <20 L (38-126) U/L Total Protein 4.9 L (6.3-8.2) g/dL Albumin 2.7 L (3.5-5.0) g/dL Microbiology - Last 24 Hours (Table) 07/11/17 00:01 Blood Culture - Preliminary Blood No Growth after 48 hours 07/12/17 11:10 Urine Culture - Final Urine,Catheterized Assessment and Plan Plan: #1. Acute on chronic hypoxic and hypercapnic respiratory failure secondary to COPD exacerbation and acute onset diastolic heart failure. The patient is severe respiratory and metabolic acidosis. The patient is currently on BiPAP. Note that she is a DNR/DNI CODE STATUS and based on that no intubation has been performed. The patient is currently on a BiPAP and a settings have been adjusted to a BiPAP pressure of 14/5 cm of water. The follow-up plans will be obtained. I also added some bicarb to counteract her underlying metabolic acidosis. On 07/11/2017, the patient's condition remains essentially unchanged. Awaiting a follow-up blood gases however I'm particularly convinced that she is still has severe respiratory acidosis due to COPD exacerbation and the patient is progressively going into fluid overload. The patient is still being supported with a BiPAP at the same level of pressures which is 14/5 cm of water. Her tidal volumes are in the 350 range. The patient's FiO2 is up to 80%. She does have essentially severe respiratory acidosis and a component of metabolic acidosis for which she was started on a bicarb drip. #2. CHF with a component of diastolic dysfunction #3. Chronic renal failure with acute kidney injury on top of chronic renal insufficiency. The patient has oliguric/anuric at this point. Potassium level is up to 6.6. The acute hyperkalemia was treated with a combination of Lasix, albuterol high-dose and bicarb drip. Insulin drip will be also initiated. The rhythm strip does not reveal any cardiac toxicity from hyperkalemia. #4. 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 Elevated troponins, topped out at 0.181 #6. Diastolic heart failure, EF 55-60% #7. Nicotine dependence, in remission #8. Hyperlipidemia #9. Hypothyroidism #10 altered mentation secondary to severe acidosis and hypercapnia. Plan We'll gauzes obviously poor and the patient's COPD is advanced. She is in severe respiratory acidosis. She is also an acute kidney injury with a component of metabolic acidosis and acute hyperkalemia. The potassium level is being measured a combination of Lasix, bicarb drip, insulin and albuterol high- dose. Dialysis may be contemplated if the patient's sister status improves. I personally think that short of intubation mechanical ventilation the patient's chance of recovery is essentially slim or negligible. I'm going to discuss it with the family and with the dixonac operator and will make final decisions regarding the need for dialysis. Meanwhile, we'll continue the BiPAP support, we'll obtain a follow-up blood gas, we will monitor the potassium level, we'll monitor urine output, we'll continue with IV Zosyn, continue the bronchodilators and systemic steroids, I will continue to follow. This is a critically care evaluation was done and 35 minutes. Had a lengthy discussion with the daughter, Hilaria, at the bedside yesterday and she is aware of the current circumstances and she understands that her mother is very sick and she may pass away from this condition. Time with Patient: Greater than 30
--- NOTE | 2017-07-14 08:36 | XR ---
EXAMINATION TYPE: XR chest 1V DATE OF EXAM: 07/14/2017 COMPARISON: 07/13/2017 HISTORY: Shortness of breath TECHNIQUE: Single frontal view of the chest is obtained. FINDINGS: Bilateral infiltrate and pleural effusion noted. Interstitial pattern seen. Biapical pleur al thickening. IMPRESSION: 1. Stable chest x-ray demonstrating bilateral infiltrate and pleural effusion. Mild central venous co ngestion excluded.
[2017-07-14 08:39] LABS: ABG Base Excess 6.7 mmol/L; ABG HCO3 36 mmol/L (21-25); ABG PCO2 116 mmHg (35-45); ABG PO2 65 mmHg (83-108)
[2017-07-14] MEDS ORDERED: INSULIN REGULAR BOLUS (FROM DRIP BAG) IV PRN (09:01)
[2017-07-14] MEDS: guaiFENesin 600 MG TABLET.ER PO SCH (09:05)
[2017-07-14] MEDS: ASPIRIN 81 MG PO SCH (09:05)
[2017-07-14] MEDS: LEVOTHYROXINE IVP 100 MCG/5 ML VIAL IV SCH (09:06)
[2017-07-14] MEDS: SODIUM FERRIC GLUCONAT-SUCROSE 125 MG in SODIUM CHLORIDE 0.9% 100 ML IVPB SCH (09:06)
[2017-07-14] MEDS: PANTOPRAZOLE 40 MG/10 ML VIAL IVP SCH (09:06)
[2017-07-14] MEDS: NON-FORMULARY DRUG (Roflumilast [Daliresp] 500 MCG) PO SCH (09:06)
[2017-07-14] MEDS: ENOXAPARIN 30 MG/0.3 ML SYRINGE SQ SCH (09:07)
[2017-07-14] MEDS: ERYTHROMYCIN 5 MG/GM OPHTH OINT 3.5 GM TUBE BOTH EYES SCH ×2 (09:07→18:07)
[2017-07-14] MEDS: ARTIFICIAL TEARS OINTMENT 3.5 GM TUBE BOTH EYES SCH ×3 (09:07→18:07)
[2017-07-14] MEDS ORDERED: INSULIN REGULAR 100 UNIT in SODIUM CHLORIDE 0.9% 100 ML IV SCH (09:15)
[2017-07-14 10:06] LABS: Glucose,Whole Blood 320 mg/dL (75-99)
--- NOTE | 2017-07-14 10:35 | P.PN ---
Subjective Patient is seen in follow-up for acute kidney injury. Renal function is worse today with creatinine up to 3.98. Her urine output is 0-10 mL an hour. Patient 's currently on a BiPAP. She is not a reliable historian. She became quite hypotensive this admission and required levofed support. It was discontinued this morning. She is currently on an insulin drip as well as isotonic sodium bicarbonate drip running at 75 mL an hour. She was also noted to have a postvoid residual of 545 mL and has a Farfan catheter in place now. Vital signs are stable. General: The patient appeared well nourished and normally developed. Currently on a BiPAP. HEENT: Head exam is unremarkable. Neck is without jugular venous distension. LUNGS: Scattered rhonchi. Breath sounds decreased. HEART: Rate and Rhythm are regular. First and second heart sounds normal. No murmurs, rubs or gallops. ABDOMEN: Abdominal exam reveals normal bowel sounds. Non-tender and non- distended. No evidence of peritonitis. EXTREMITITES: No clubbing, cyanosis, or edema. Objective - Vital Signs Vital signs: Vital Signs Temp 98.6 F 07/14/17 04:00 Pulse 112 H 07/14/17 08:00 Resp 19 07/14/17 07:00 BP 121/50 07/14/17 07:00 Pulse Ox 98 07/14/17 07:00 Intake & Output 07/13/17 07/14/17 07/14/17 18:59 06:59 18:59 Intake Total 6964.411 0365.625 75 Output Total 115 65 0 Balance 8384.611 9698.625 75 Weight 62 kg 64.2 kg Intake: IV 225 Sodium Chloride 0.9% 1, 225 000 ml @ 75 mls/hr IV . [id number] [facility] Rx#:[id number] Intake, IV Titration 7220.208 7536.625 75 Amount Dextrose 5% in Water 1, 525 900 75 000 ml @ 75 mls/hr IV . [id number] ONE with Sodium Bicarb (1 Meq/ml) 150 ml Rx#:[id number] Norepinephrin 4 mg-0.9% 201.999 273.625 Ns Pmx 4 mg In 250 ml @ Titrate IV .Q0M [facility] Rx#: [id number] Sodium Chloride 0.45% 1, 270 200 000 ml @ 75 mls/hr IV . [id number] [facility] Rx#:[id number] Sodium Ferric Gluconat- 100 Sucrose 125 mg In Sodium Chloride 0.9% 100 ml @ 100 mls/hr IVPB DAILY [facility] Rx#:[id number] Output: Urine 115 65 0 - Labs CBC & Chem 7: 07/14/17 04:22 07/14/17 04:22 Labs: Abnormal Lab Results - Last 24 Hours (Table) 07/13/17 07/13/17 07/13/17 Range/Units 10:57 17:02 18:43 RBC (3.80-5.40) m/uL Hgb (11.4-16.0) gm/dL Hct (34.0-46.0) % MCV (80.0-100.0) fL MCHC (31.0-37.0) g/dL Neutrophils # (Manual) (1.3-7.7) k/uL Lymphocytes # (Manual) (1.0-4.8) k/uL Nucleated RBCs (0-0) /100 WBC ABG pH 7.04 L* 7.09 L* (7.35-7.45) ABG pCO2 106 H* 102 H* (35-45) mmHg ABG pO2 65 L 38 L* (83-108) mmHg ABG HCO3 27 H 30 H (21-25) mmol/L ABG Total CO2 30 H 33 H (19-24) mmol/L ABG O2 Saturation 78.6 L 50.0 L (94-97) % Sodium 148 H (137-145) mmol/L Potassium 5.8 H (3.5-5.1) mmol/L Chloride (98-107) mmol/L BUN 74 H (7-17) mg/dL Creatinine 3.60 H (0.52-1.04) mg/dL Glucose 199 H (74-99) mg/dL POC Glucose (mg/dL) (75-99) mg/dL Calcium 7.6 L (8.4-10.2) mg/dL Phosphorus (2.5-4.5) mg/dL Alkaline Phosphatase (38-126) U/L Total Protein 4.8 L (6.3-8.2) g/dL Albumin 2.7 L (3.5-5.0) g/dL 07/14/17 07/14/17 07/14/17 Range/Units 04:22 04:22 08:30 RBC 2.53 L (3.80-5.40) m/uL Hgb 8.1 L (11.4-16.0) gm/dL Hct 27.1 L (34.0-46.0) % MCV 107.2 H (80.0-100.0) fL MCHC 30.0 L (31.0-37.0) g/dL Neutrophils # (Manual) 8.30 H (1.3-7.7) k/uL Lymphocytes # (Manual) 0.54 L (1.0-4.8) k/uL Nucleated RBCs 1 H (0-0) /100 WBC ABG pH 7.10 L* (7.35-7.45) ABG pCO2 116 H* (35-45) mmHg ABG pO2 65 L (83-108) mmHg ABG HCO3 36 H (21-25) mmol/L ABG Total CO2 (19-24) mmol/L ABG O2 Saturation 92.0 L (94-97) % Sodium 148 H (137-145) mmol/L Potassium 6.6 H* (3.5-5.1) mmol/L Chloride 108 H (98-107) mmol/L BUN 79 H (7-17) mg/dL Creatinine 3.98 H (0.52-1.04) mg/dL Glucose 254 H (74-99) mg/dL POC Glucose (mg/dL) (75-99) mg/dL Calcium 7.3 L (8.4-10.2) mg/dL Phosphorus 8.5 H* (2.5-4.5) mg/dL Alkaline Phosphatase <20 L (38-126) U/L Total Protein 4.9 L (6.3-8.2) g/dL Albumin 2.7 L (3.5-5.0) g/dL 07/14/17 Range/Units 09:24 RBC (3.80-5.40) m/uL Hgb (11.4-16.0) gm/dL Hct (34.0-46.0) % MCV (80.0-100.0) fL MCHC (31.0-37.0) g/dL Neutrophils # (Manual) (1.3-7.7) k/uL Lymphocytes # (Manual) (1.0-4.8) k/uL Nucleated RBCs (0-0) /100 WBC ABG pH (7.35-7.45) ABG pCO2 (35-45) mmHg ABG pO2 (83-108) mmHg ABG HCO3 (21-25) mmol/L ABG Total CO2 (19-24) mmol/L ABG O2 Saturation (94-97) % Sodium (137-145) mmol/L Potassium (3.5-5.1) mmol/L Chloride (98-107) mmol/L BUN (7-17) mg/dL Creatinine (0.52-1.04) mg/dL Glucose (74-99) mg/dL POC Glucose (mg/dL) 320 H (75-99) mg/dL Calcium (8.4-10.2) mg/dL Phosphorus (2.5-4.5) mg/dL Alkaline Phosphatase (38-126) U/L Total Protein (6.3-8.2) g/dL Albumin (3.5-5.0) g/dL Microbiology - Last 24 Hours (Table) 07/11/17 00:01 Blood Culture - Preliminary Blood No Growth after 48 hours 07/12/17 11:10 Urine Culture - Final Urine,Catheterized Assessment and Plan Plan: Assessment: #1. Oliguric acute kidney injury secondary to ischemic ATN secondary to hypotension. Creatinine up to 3.98 today. Her bladder scan was also over 500 and now has a Farfan catheter in place. #2. Hypernatremia secondary to lack of oral water intake. #3. Hyperphosphatemia due to acute kidney injury maintained on Renvela. #4. Anemia with iron deficiency noted. #5. Diastolic CHF. #6. Acute hypercapnic respiratory failure secondary to COPD exacerbation. #7. Hyperkalemia secondary to acute kidney injury and oliguria. Plan: Patient received 80 mg of IV Lasix this morning with no significant response in urine output. Hyperkalemia was treated medically with IV Lasix as well as high-dose nebulized albuterol along with IV insulin. Avoid nephrotoxic agents and hypotensive episodes. Ferrlecit 125 mg IV daily for 3 days. Second dose today. I discussed with the family yesterday and again today along with the filter screen cleaner regarding her overall poor prognosis. Renal replacement therapy was discussed. I also advised them that due to her overall hemodynamic status, she may not be able to tolerate dialysis. The family is currently undecided but will make their decision soon. Repeat potassium level will be checked at 11 AM.
--- NOTE | 2017-07-14 10:51 | CDI ---
Last Revision, May 2017 Documentation Clarification Form Date: 07/14/2017 9:59:00 AM From: Soledad Akhtar RN, CCDS Admit Date: 07/12/2017 1:47:00 AM Patient Name: Amina May Visit Number: [id number] ATTENTION: The Clinical Documentation Specialists (CDI) and [facility] Coding Staff appreciate your assistance in clarifying documentation. Please respond to the clarification below the line at the bottom and electronically sign. The CDI & [facility] Coding staff will review the response and follow-up if needed. Please note: Queries are made part of the Legal Health Record. If you have any questions, please contact the author of this message via ITS. Dr. Misa Ambrose Hypotension is documented in the progress notes and requires further specificity in order to accurately reflect the patient's severity of illness and risk of mortality. Patient history/risk factors: Heart failure, COPD, hyperlipidemia, OA, PRASAD w/bipap, thyroid disorder, iron deficiency anemia Clinical Indicators: 07/12 H&P: "Avoid diuresis today given hypotension." 07/12 Cardiology consult: "Avoid episodes of hypotension, no IV anti- hypertensives should be used." 07/13 Nephro: "Nonoliguric acute kidney injury secondary to ischemic ATN secondary to hypotension." 07/13 Attending: "Essential hypertension, now with hypotension. Requiring vasopressors. Acute renal failure, secondary to hypotension and possible ATN." 07/12 Vitals: Temp 98.2, Hr 107, RR 25, B/P 82/69, Spo2 96% 5l NC End Organ Damage: REGINA with ATN, A/C hypoxic respiratory failure, Acute CHF Treatment: Levophed titrate for B/P 500 cc IVF Bolus followed by IVF @ 75 cc/hr In your professional opinion, can you please further clarify a diagnosis for the patients hypotension if known? Cardiogenic Shock Cause Hypovolemic Shock Cause Other, please specify Unable to determine Please continue to document in your progress notes and discharge summary in order to capture severity of illness and risk of mortality. Include clinical findings that support your diagnosis. MTDD
[2017-07-14] MEDS: PIPERACILLIN-TAZOBACTAM 3.375 GM in DEXTROSE/WATER 1 50ML.BAG IVPB SCH ×2 (10:53→21:33)
[2017-07-14 10:58] LABS: Glucose,Whole Blood 269 mg/dL (75-99)
--- NOTE | 2017-07-14 11:17 | CDI ---
Last Revision, May 2017 Documentation Clarification Form Date: 07/14/2017 11:01:00 AM From: Soledad Akhtar RN, CCDS Admit Date: 07/12/2017 1:47:00 AM Patient Name: Amina May Visit Number: [id number] ATTENTION: The Clinical Documentation Specialists (CDI) and [facility] Coding Staff appreciate your assistance in clarifying documentation. Please respond to the clarification below the line at the bottom and electronically sign. The CDI & [facility] Coding staff will review the response and follow-up if needed. Please note: Queries are made part of the Legal Health Record. If you have any questions, please contact the author of this message via ITS. Dr. Aleksandar Lewis Pneumonia was documented in the Pulmonary. History/Risk Factors: CHF, COPD, Hyperlipidemia, PRASAD with home Bipap, O2 @ 2-3 L OTC Clinical Indicators: 07/14 Pulmonary Progress note: "Chest x-ray shows CHF and underlying pneumonia cannot be completely excluded." WBC: 7.2/5.7/8.9/9 Left shift: 5.5/8.2/8.3 CXR: Stable chest x-ray demonstrating bilateral infiltrate and pleural effusion . Mild central venous congestion excluded. 07/14 Pulmonary Lung/Breathing assessment: CHEST: No chest wall deformity. Symmetrical expansion. There is diffuse extremity wheezes throughout the lung saab bilaterally. Air entry is markedly diminished throughout the lung saab. LUNGS: diminished overall." Treatment: Antibiotics: Zosyn 3.375 IVPB Q 12 (adjusted for renal function) O2: 80 % BIPAP Breathing TX: Duoneb INH QID and Q 4 PRN In order to capture the severity of condition, please clarify if the condition signifies and you are treating for: Aspiration Pneumonia, identify if: Due to solids or liquids Bacterial Pneumonia, specify causal organism (if known) Gram Negative Pneumonia Due to Strep Due to Staph Due to E. coli Other bacteria (please specify) Viral Pneumonia, specify casual organism (if known) Healthcare Acquired Pneumonia/Pneumonia, unspecified Other, please specify Unable to determine Please continue to document in your progress notes and discharge summary in order to capture severity of illness and risk of mortality. Include clinical findings that support your diagnosis. Unable to determine if this patient has pneumonia, suspected pneumonia (unknown) MTDD
--- NOTE | 2017-07-14 11:37 | P.PN ---
Subjective Progress Note Date: 07/14/17 Patient's overall condition is getting worse. She became oliguric over the last several hours. Her blood pressure still borderline low. She is still requiring BiPAP use all the time. She is less awake. Her daughters at bedside. Objective - Vital Signs Vital signs: Vital Signs Temp 98.6 F 07/14/17 04:00 Pulse 112 H 07/14/17 08:00 Resp 19 07/14/17 07:00 BP 121/50 07/14/17 07:00 Pulse Ox 98 07/14/17 07:00 Intake & Output 07/13/17 07/14/17 07/14/17 18:59 06:59 18:59 Intake Total 2811.779 7886.625 85.617 Output Total 115 65 0 Balance 7490.285 6700.625 85.617 Weight 62 kg 64.2 kg Intake: IV 225 Sodium Chloride 0.9% 1, 225 000 ml @ 75 mls/hr IV . [id number] [facility] Rx#:[id number] Intake, IV Titration 3046.808 2791.625 85.617 Amount Dextrose 5% in Water 1, 525 900 75 000 ml @ 75 mls/hr IV . [id number] ONE with Sodium Bicarb (1 Meq/ml) 150 ml Rx#:[id number] Insulin Regular 100 unit 10.617 In Sodium Chloride 0.9% 100 ml @ Per Protocol IV .Q0M [facility] Rx#:[id number] Norepinephrin 4 mg-0.9% 201.999 273.625 Ns Pmx 4 mg In 250 ml @ Titrate IV .Q0M [facility] Rx#: [id number] Sodium Chloride 0.45% 1, 270 200 000 ml @ 75 mls/hr IV . [id number] [facility] Rx#:[id number] Sodium Ferric Gluconat- 100 Sucrose 125 mg In Sodium Chloride 0.9% 100 ml @ 100 mls/hr IVPB DAILY [facility] Rx#:[id number] Output: Urine 115 65 0 - Exam General: The patient is lethargic. She appears acutely ill. Neck: The neck is supple, Cardiovascular: Normal S1-S2, no S3-S4, no murmurs. Respiratory: Lungs with BiPAP machine sounds Gastrointestinal: Abdomen is soft, nontender Musculoskeletal: There is +1 pedal edema. Skin: Skin is warm and dry. There is diffuse bruising mostly to the upper extremities. - Labs CBC & Chem 7: 07/14/17 04:22 07/14/17 04:22 Labs: Abnormal Lab Results - Last 24 Hours (Table) 07/13/17 07/13/17 07/14/17 Range/Units 17:02 18:43 04:22 RBC 2.53 L (3.80-5.40) m/uL Hgb 8.1 L (11.4-16.0) gm/dL Hct 27.1 L (34.0-46.0) % MCV 107.2 H (80.0-100.0) fL MCHC 30.0 L (31.0-37.0) g/dL Neutrophils # (Manual) 8.30 H (1.3-7.7) k/uL Lymphocytes # (Manual) 0.54 L (1.0-4.8) k/uL Nucleated RBCs 1 H (0-0) /100 WBC ABG pH 7.09 L* (7.35-7.45) ABG pCO2 102 H* (35-45) mmHg ABG pO2 38 L* (83-108) mmHg ABG HCO3 30 H (21-25) mmol/L ABG Total CO2 33 H (19-24) mmol/L ABG O2 Saturation 50.0 L (94-97) % Sodium 148 H (137-145) mmol/L Potassium 5.8 H (3.5-5.1) mmol/L Chloride (98-107) mmol/L BUN 74 H (7-17) mg/dL Creatinine 3.60 H (0.52-1.04) mg/dL Glucose 199 H (74-99) mg/dL POC Glucose (mg/dL) (75-99) mg/dL Calcium 7.6 L (8.4-10.2) mg/dL Phosphorus (2.5-4.5) mg/dL Alkaline Phosphatase (38-126) U/L Total Protein 4.8 L (6.3-8.2) g/dL Albumin 2.7 L (3.5-5.0) g/dL 07/14/17 07/14/17 07/14/17 Range/Units 04:22 08:30 09:24 RBC (3.80-5.40) m/uL Hgb (11.4-16.0) gm/dL Hct (34.0-46.0) % MCV (80.0-100.0) fL MCHC (31.0-37.0) g/dL Neutrophils # (Manual) (1.3-7.7) k/uL Lymphocytes # (Manual) (1.0-4.8) k/uL Nucleated RBCs (0-0) /100 WBC ABG pH 7.10 L* (7.35-7.45) ABG pCO2 116 H* (35-45) mmHg ABG pO2 65 L (83-108) mmHg ABG HCO3 36 H (21-25) mmol/L ABG Total CO2 (19-24) mmol/L ABG O2 Saturation 92.0 L (94-97) % Sodium 148 H (137-145) mmol/L Potassium 6.6 H* (3.5-5.1) mmol/L Chloride 108 H (98-107) mmol/L BUN 79 H (7-17) mg/dL Creatinine 3.98 H (0.52-1.04) mg/dL Glucose 254 H (74-99) mg/dL POC Glucose (mg/dL) 320 H (75-99) mg/dL Calcium 7.3 L (8.4-10.2) mg/dL Phosphorus 8.5 H* (2.5-4.5) mg/dL Alkaline Phosphatase <20 L (38-126) U/L Total Protein 4.9 L (6.3-8.2) g/dL Albumin 2.7 L (3.5-5.0) g/dL 07/14/17 Range/Units 10:54 RBC (3.80-5.40) m/uL Hgb (11.4-16.0) gm/dL Hct (34.0-46.0) % MCV (80.0-100.0) fL MCHC (31.0-37.0) g/dL Neutrophils # (Manual) (1.3-7.7) k/uL Lymphocytes # (Manual) (1.0-4.8) k/uL Nucleated RBCs (0-0) /100 WBC ABG pH (7.35-7.45) ABG pCO2 (35-45) mmHg ABG pO2 (83-108) mmHg ABG HCO3 (21-25) mmol/L ABG Total CO2 (19-24) mmol/L ABG O2 Saturation (94-97) % Sodium (137-145) mmol/L Potassium (3.5-5.1) mmol/L Chloride (98-107) mmol/L BUN (7-17) mg/dL Creatinine (0.52-1.04) mg/dL Glucose (74-99) mg/dL POC Glucose (mg/dL) 269 H (75-99) mg/dL Calcium (8.4-10.2) mg/dL Phosphorus (2.5-4.5) mg/dL Alkaline Phosphatase (38-126) U/L Total Protein (6.3-8.2) g/dL Albumin (3.5-5.0) g/dL Microbiology - Last 24 Hours (Table) 07/11/17 00:01 Blood Culture - Preliminary Blood No Growth after 48 hours 07/12/17 11:10 Urine Culture - Final Urine,Catheterized Assessment and Plan Assessment: 1. Acute hypoxic and hypercapnic respiratory failure 2. Acute respiratory acidosis secondary to CO2 retention 3. Acute COPD exacerbation 4. Chronic hypoxic respiratory failure on home O2 3 L 5. Mild diastolic heart failure exacerbation with evidence of fluid overload on chest x-ray 6. Non-thrombotic troponin leak with no evidence of acute coronary syndrome 7. Hypothyroidism 8. Bilateral conjunctivitis probably secondary to BiPAP use and dryness of the conjunctiva. I would order artificial tears every 6 hours. I would also start the patient on erythromycin eyedrop for now. 9. Essential hypertension, now with hypotension. Requiring vasopressors. Most likely secondary to hypovolemic shock 10. Acute renal failure, secondary to hypotension and possible ATN. 11. CODE STATUS: Discussed with the patient by nursing staff and with her daughters at bedside. Patient is DNR/DNI Today, I reviewed her medication list and lab work results. Patient remains critically ill. Her prognosis is guarded. Goals of care were discussed with her family by me and other consultants. They elected to pursue comfort care. They are scheduled to meet with hospice later today.
[2017-07-14 11:59] LABS: Glucose,Whole Blood 209 mg/dL (75-99)
[2017-07-14 13:04] LABS: Calcium 6.9 mg/dL (8.4-10.2); Phosphorus 7.8 mg/dL (2.5-4.5); Potassium 4.9 mmol/L (3.5-5.1)
[2017-07-14 13:37] LABS: Glucose,Whole Blood 180 mg/dL (75-99)
[2017-07-14 14:44] LABS: Glucose,Whole Blood 134 mg/dL (75-99)
[2017-07-14 16:22] LABS: Glucose,Whole Blood 126 mg/dL (75-99)
[2017-07-14 16:39] VITALS: RESP 22; TEMP 97.5
[2017-07-14 17:20] VITALS: BP 106/44
[2017-07-14 21:02] VITALS: PULSE 110
[2017-07-15] MEDS ORDERED: methylPREDNISolone SOD SUCCI 125 MG/2 ML VIAL ONE
[2017-07-15] MEDS: IPRATROPIUM-ALBUTEROL 3 ML NEB INHALATION SCH ×3 (04:50→07:50)
[2017-07-15] MEDS: FORMOTEROL FUMARATE 20 MCG/2 ML NEBU INHALATION SCH (07:50)
[2017-07-15] MEDS: BUDESONIDE 1 MG/2 ML NEBU INHALATION SCH (07:50)
[2017-07-15] MEDS: PANTOPRAZOLE 40 MG/10 ML VIAL IVP SCH (08:20)
[2017-07-15] MEDS: ENOXAPARIN 30 MG/0.3 ML SYRINGE SQ SCH (08:20)
[2017-07-15] MEDS: LEVOTHYROXINE IVP 100 MCG/5 ML VIAL IV SCH (08:20)
[2017-07-15] MEDS: PIPERACILLIN-TAZOBACTAM 3.375 GM in DEXTROSE/WATER 1 50ML.BAG IVPB SCH (08:25)
[2017-07-15] MEDS: ERYTHROMYCIN 5 MG/GM OPHTH OINT 3.5 GM TUBE BOTH EYES SCH (09:33)
[2017-07-15] MEDS: ARTIFICIAL TEARS OINTMENT 3.5 GM TUBE BOTH EYES SCH (09:33)
[2017-07-15] MEDS: methylPREDNISolone SOD SUCCI 125 MG/2 ML VIAL IV SCH (09:34)
[2017-07-15] MEDS ORDERED: MORPHINE SULFATE 2 MG/ML SYRINGE IVP PRN (10:11)
--- NOTE | 2017-07-15 12:09 | P.DS ---
Providers Date of admission: 07/12/17 01:47 Expected date of discharge: 07/15/17 Attending physician: Misa Ambrose Consults: 07/12/17 01:44 Consult Physician Routine Consulting Provider: [facility] Consult Reason/Comments: Acute pulmonary edema Do you want consulting provider notified?: Yes Consult Physician Routine Consulting Provider: Leatha Solis Consult Reason/Comments: Renal failure Do you want consulting provider notified?: Yes 07/12/17 10:29 Consult Physician Routine Consulting Provider: Nba Mary Consult Reason/Comments: copd Do you want consulting provider notified?: Already Contacted Primary care physician: [facility] Hospital Course: This is a 82-year-old female with very complex past medical history noted below who presented to the hospital with worsening confusion and hypoxia. Patient was evaluated and admitted to the intensive care unit. She was managed aggressively and was seen and evaluated by different specialists. Her family initially wanted her to be DNR/DNI but they wanted to continue aggressive medical management. Unfortunately her overall condition continued to decline. Eventually her daughters elected to pursue comfort measures and hospice care. Patient was transferred to a private room on hospice. She remained comfortable. She on 07/15/2017. Please refer to nursing staff documentation for exact time of . Below is the distal for medical problems. 1. Acute hypoxic and hypercapnic respiratory failure 2. Acute respiratory acidosis secondary to CO2 retention 3. Acute COPD exacerbation 4. Chronic hypoxic respiratory failure on home O2 3 L 5. Mild diastolic heart failure exacerbation with evidence of fluid overload on chest x-ray 6. Non-thrombotic troponin leak with no evidence of acute coronary syndrome 7. Hypothyroidism 8. Bilateral conjunctivitis probably secondary to BiPAP use and dryness of the conjunctiva. 9. Essential hypertension, now with hypotension. Requiring vasopressors. Most likely secondary to hypovolemic shock 10. Acute renal failure, secondary to hypotension and possible ATN. Plan - Discharge Summary New Discharge Prescriptions: No Action predniSONE 20 mg PO DAILY Montelukast [Singulair] 10 mg PO HS Ipratropium-Albuterol Nebulize [Duoneb 0.5 mg-3 mg/3 ml Soln] 3 ml INHALATION RT-QID Ascorbic Acid [Vitamin C] 250 mg PO DAILY Fexofenadine HCl [Latoya Allergy] 60 mg PO DAILY Docusate [Colace] 200 mg PO DAILY Cholecalciferol (Vitamin D3) [Vitamin D3] 2,000 unit PO DAILY Budesonide/Formoterol Fumarate [Symbicort 80-4.5 Mcg Inhaler] 2 puff INHALATION RT-BID Theophylline Anhydrous [Theochron] 300 mg PO DAILY Roflumilast [Daliresp] 500 mcg PO DAILY Levothyroxine Sodium [Synthroid] 100 mcg PO DAILY Ipratropium Mcnary 0.06%Nasal [Atrovent Nasal 0.06%] 2 spray EA NOSTRIL BID Aspirin 81 mg PO DAILY chew clonazePAM [KlonoPIN] 0.5 mg PO BID tab guaiFENesin [Mucinex] 1,200 mg PO Q12HR tablet.er Metoprolol Succinate (ER) [Toprol XL] 25 mg PO DAILY tab.er.24h Polymyxin B-Trimethoprim Ophth [Polytrim Opthalmic] 1 drop LEFT EYE QID Olopatadine HCl [Patanol] 1 drop LEFT EYE BID PRN PRN Reason: EYE IRITATION Discharge Medication List Ascorbic Acid [Vitamin C] 250 mg PO DAILY 06/01/17 [History] Budesonide/Formoterol Fumarate [Symbicort 80-4.5 Mcg Inhaler] 2 puff INHALATION RT-BID 06/01/17 [History] Cholecalciferol (Vitamin D3) [Vitamin D3] 2,000 unit PO DAILY 06/01/17 [History] Docusate [Colace] 200 mg PO DAILY 06/01/17 [History] Fexofenadine HCl [Latoya Allergy] 60 mg PO DAILY 06/01/17 [History] Ipratropium Mcnary 0.06%Nasal [Atrovent Nasal 0.06%] 2 spray EA NOSTRIL BID 05/08 [History] Ipratropium-Albuterol Nebulize [Duoneb 0.5 mg-3 mg/3 ml Soln] 3 ml INHALATION RT -QID 06/01/17 [History] Levothyroxine Sodium [Synthroid] 100 mcg PO DAILY 06/01/17 [History] Montelukast [Singulair] 10 mg PO HS 06/01/17 [History] Roflumilast [Daliresp] 500 mcg PO DAILY 06/01/17 [History] Theophylline Anhydrous [Theochron] 300 mg PO DAILY 06/01/17 [History] predniSONE 20 mg PO DAILY 06/01/17 [History] Aspirin 81 mg PO DAILY chew 06/06/17 [Rx] Metoprolol Succinate (ER) [Toprol XL] 25 mg PO DAILY tab.er.24h 06/06/17 [Rx] clonazePAM [KlonoPIN] 0.5 mg PO BID tab 06/06/17 [Rx] guaiFENesin [Mucinex] 1,200 mg PO Q12HR tablet.er 06/06/17 [Rx] Olopatadine HCl [Patanol] 1 drop LEFT EYE BID PRN 07/13/17 [History] Polymyxin B-Trimethoprim Ophth [Polytrim Opthalmic] 1 drop LEFT EYE QID [History] Follow up Appointment(s)/Referral(s): Elva Ren MD [Primary Care Provider] - 1-2 days Discharge Disposition: - Preliminary Cause of Preliminary Cause of : Acute respiratory failure
--- NOTE | 2017-07-15 15:40 | P.PN ---
Subjective Progress Note Date: 07/15/17 Principal diagnosis: Acute on chronic hypoxic and hypercapnic respiratory failure secondary to COPD exacerbation and acute onset diastolic heart failure. 82-year-old female patient who presented yesterday to the emergency department with increased shortness of breath and acute hypercapnic respiratory failure. The patient has known to me. I took care of her in approximately a month ago when she came into the hospital because of a similar presentation. She has an advanced goal stage IV disease and she has chronic hypoxic respiratory failure and she is oxygen dependent. In addition, the patient has history of CHF with diastolic dysfunction and an ejection fraction of 55-60%, hyperlipidemia, hypothyroidism and chronic renal failure as the patient's baseline creatinine is been between 1.5 - 1.7. Note that yesterday's blood gases showed severe restrictive acidosis. The patient had a pH of 7.19 with a pCO2 of 84 and pO2 of 62 and this was done and FiO2 of 40% while the patient on a BiPAP at a pressure of 10/5 cm of water. This morning, the blood gases looked even worse. PH was at 7.04 with a pCO2 of 106 and pO2 of 65 and based on that I increased the IPAP up to 13 and EPAP at 5, with an FiO2 of 45%. I also noted that the patient has developed an acute on top of chronic renal failure. His most recent blood work showed a pattern of 3.0. The patient's bicarb was down to 27 note that the patient carries a bicarb level of around above 35. Clinically, the patient was barely responsive. I was told that she was quite agitated earlier during the night and she seemed to be much more sedated at the time of my evaluation. She is on IV Zosyn. She is on DuoNeb nebulized treatment around -the-clock. She is also on IV Solu Medrol 60 mg every 6 hours. She is honestly bronchospastic and wheezy and a significant limitation air entry bilaterally and throughout the lung saab. Chest x-ray shows CHF and underlying pneumonia cannot be completely excluded. There is extensive density in the right lung base obscuring the right heart border and there is also a large interstitial and pulmonary vascularity. On 07/14/2017, I'm seeing this patient for a follow-up. The patient is still doing very poorly. She is unresponsive. She is on a BiPAP at a pressure of 14/ 5 cm of water with an FiO2 of 80%. Her current pulse ox is around 97% and I'm awaiting the follow-up blood gases. Meanwhile, she was in severe respiratory acidosis yesterday which was a combination of respiratory and metabolic. She was managed with BiPAP knowing that the patient has a DNR/DNI CODE STATUS. She was started on a bicarb drip which is currently running at 75 mL an hour. I am awaiting her morning blood gases to be repeated today. Meanwhile I noted an elevation in the potassium up to 6.6. This is probably related to her severe acidosis. She was given 12.5 mg of albuterol updrafts continuous, she was also given bicarb drip and she'll be also started on insulin drip to shift her potassium intracellular. A repeat potassium will be done. Hemodynamically, the patient is on no pressors. She is not producing any urine output. She was given a total of 80 mg IV Lasix this morning without much benefit. Chest x-ray shows worsening in the volume status and there is possibly development of bilateral pleural effusion more so in the lung bases. She is afebrile. White cell count is not elevated. She has developed an acute on top of a chronic renal failure. Creatinine is up to 3.98. Her bicarb level is up to 28. On 07/15/2017 patient was seen on medical surgical floor, maintenance very obtunded, unresponsive, still on BiPAP support. The family has decided to make the patient a DO NOT RESUSCITATE, and they have met with the mother clear and hospice it sales representative. We recommended removing the BiPAP support, and placing the patient on 2 L per nasal cannula, and proceeding with comfort care. Family is in agreement Objective - Vital Signs Vital signs: Vital Signs Temp 97.5 F L 07/14/17 16:00 Pulse 110 H 07/14/17 21:23 Resp 22 07/14/17 17:00 BP 106/44 07/14/17 17:00 Pulse Ox 92 L 07/14/17 17:00 Intake & Output 07/14/17 07/15/17 07/15/17 18:59 06:59 18:59 Intake Total 826.407 Output Total 10 115 Balance 816.407 -115 Weight 64.2 kg Intake: Intake, IV Titration 826.407 Amount Dextrose 5% in Water 1, 750 000 ml @ 75 mls/hr IV . [id number] ONE with Sodium Bicarb (1 Meq/ml) 150 ml Rx#:[id number] Insulin Regular 100 unit 26.407 In Sodium Chloride 0.9% 100 ml @ Per Protocol IV .Q0M [facility] Rx#:[id number] Piperacillin-Tazobactam 3 50 .375 gm In Dextrose/Water 1 50ml.bag @ 12.5 mls/hr IVPB Q12H [facility] Rx#: [id number] Output: Urine 10 115 Other: # Voids 0 - Exam GENERAL EXAM: 82-year-old white female, unresponsive on BiPAP support. HEAD: Normocephalic/atraumatic. EYES: Normal reaction of pupils, equal size. Conjunctiva pink, sclera white. NOSE: Clear with pink turbinates. THROAT: No erythema or exudates. NECK: No masses, no JVD, no thyroid enlargement, no adenopathy. CHEST: No chest wall deformity. Symmetrical expansion. There is diffuse extremity wheezes throughout the lung saab bilaterally. Air entry is markedly diminished throughout the lung saab. LUNGS: diminished overall. CVS: Regular rate and rhythm, normal S1 and S2, no gallops, no murmurs, no rubs ABDOMEN: Soft, nontender. No hepatosplenomegaly, normal bowel sounds, no guarding or rigidity. EXTREMITIES: No clubbing, no edema, no cyanosis, 2+ pulses and upper and lower extremities. MUSCULOSKELETAL: Muscle strength and tone normal. SPINE: No scoliosis or deformity SKIN: No rashes CENTRAL NERVOUS SYSTEM: Patient is unresponsive and currently she is quite acidotic and she withdraws only to painful stimuli. Motor function and sensory functions cannot be assessed. No apparent facial asymmetry. No apparent cranial nerve deficits at this point. PSYCHIATRIC: Cannot be assessed due to the reasons mentioned above - Labs CBC & Chem 7: 07/14/17 04:22 07/14/17 11:56 Labs: Abnormal Lab Results - Last 24 Hours (Table) 07/14/17 Range/Units 15:51 POC Glucose (mg/dL) 126 H (75-99) mg/dL Microbiology - Last 24 Hours (Table) 07/11/17 00:01 Blood Culture - Preliminary Blood No Growth after 72 hours Assessment and Plan Plan: #1. Acute on chronic hypoxic and hypercapnic respiratory failure secondary to COPD exacerbation and acute onset diastolic heart failure. The patient is severe respiratory and metabolic acidosis. The patient is currently on BiPAP. Note that she is a DNR/DNI CODE STATUS and based on that no intubation has been performed. The patient is currently on a BiPAP and a settings have been adjusted to a BiPAP pressure of 14/5 cm of water. The follow-up plans will be obtained. I also added some bicarb to counteract her underlying metabolic acidosis. On 07/11/2017, the patient's condition remains essentially unchanged. Awaiting a follow-up blood gases however I'm particularly convinced that she is still has severe respiratory acidosis due to COPD exacerbation and the patient is progressively going into fluid overload. The patient is still being supported with a BiPAP at the same level of pressures which is 14/5 cm of water. Her tidal volumes are in the 350 range. The patient's FiO2 is up to 80%. She does have essentially severe respiratory acidosis and a component of metabolic acidosis for which she was started on a bicarb drip. On 07/15/2017 patient is seen on medical surgical floor, her family had made a decision to make her DO NOT RESUSCITATE, and proceed with comfort care. She remains on BiPAP support this morning, however in view of the general consensus and her extremely poor prognosis we recommended removing the BiPAP support and place her on nasal cannula. #2. CHF with a component of diastolic dysfunction #3. Chronic renal failure with acute kidney injury on top of chronic renal insufficiency. The patient has oliguric/anuric at this point. Potassium level is up to 6.6. The acute hyperkalemia was treated with a combination of Lasix, albuterol high-dose and bicarb drip. Insulin drip will be also initiated. The rhythm strip does not reveal any cardiac toxicity from hyperkalemia. #4. 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 Elevated troponins, topped out at 0.181 #6. Diastolic heart failure, EF 55-60% #7. Nicotine dependence, in remission #8. Hyperlipidemia #9. Hypothyroidism #10 altered mentation secondary to severe acidosis and hypercapnia. Plan Plan: Patient was made a DO NOT RESUSCITATE. The family has met with the [facility] this morning. She remains on BiPAP support this morning. She remains unresponsive. In view of the general consensus in her extremely poor prognosis we recommended removing the BiPAP mask off and place her on nasal cannula. The family is in agreement. I performed a history & physical examination of the patient and discussed their management with my nurse practitioner, Malina Clarke. I reviewed the nurse practitioner's note and agree with the documented findings and plan of care. Lung sounds are diminished. The findings and the impression was discussed with the patient. I attest to the documentation by the nurse practitioner. Time with Patient: Less than 30
== END 2017-07-15 10:33 | disposition hospice, inpatient (51) | DRG 291 ==
LOC: EC 23:15 → 6ICU 07-12 01:47 → 4MS4W 07-14 18:26
PROVIDERS: ADMIT Internal Medicine; ATTEND Internal Medicine
DX: I11.0 Hypertensive heart disease with heart failure (principal); J96.22 Acute and chronic respiratory failure with hypercapnia; N17.0 Acute kidney failure with tubular necrosis; J96.21 Acute and chronic respiratory failure with hypoxia; R57.1 Hypovolemic shock; E87.0 Hyperosmolality and hypernatremia; E83.39 Other disorders of phosphorus metabolism; I27.20 Pulmonary hypertension, unspecified; E87.2 Acidosis; J44.1 Chronic obstructive pulmonary disease with (acute) exacerbation; I50.33 Acute on chronic diastolic (congestive) heart failure; Z66 Do not resuscitate; E87.5 Hyperkalemia; Z99.81 Dependence on supplemental oxygen; I35.8 Other nonrheumatic aortic valve disorders; E78.5 Hyperlipidemia, unspecified; H10.9 Unspecified conjunctivitis; E03.9 Hypothyroidism, unspecified; M19.91 Primary osteoarthritis, unspecified site; G47.30 Sleep apnea, unspecified; M10.9 Gout, unspecified; D50.9 Iron deficiency anemia, unspecified; H40.9 Unspecified glaucoma; H35.30 Unspecified macular degeneration; D17.9 Benign lipomatous neoplasm, unspecified; Z79.82 Long term (current) use of aspirin; Z79.52 Long term (current) use of systemic steroids; Z79.51 Long term (current) use of inhaled steroids; Z79.899 Other long term (current) drug therapy; Z98.49 Cataract extraction status, unspecified eye; Z96.1 Presence of intraocular lens; Z87.891 Personal history of nicotine dependence; Z82.49 Family history of ischemic heart disease and other diseases of the circulatory system
CPT/HCPCS: 36415; 36600; 71045; 71046; 80048; 80053; 81001; 82550; 82553; 82805; 83540; 83550; 83735; 83880; 84100; 84484; 85025; 85027; 85610; 85730; 87040; 87086; 93005; 94640; 94660; 96374; 96375; 99291